=== PATIENT | male | born 1960 | race Caucasian/White ===

== ENCOUNTER 2023-08-12 18:01 | Inpatient (IN) | payer OTHER, SELFPAY ==
[2023-08-12 18:06] VITALS: BP 115/65; PULSE 68; RESP 14; TEMP 36.4; O2SAT 96; BMI 17.2
--- NOTE | 2023-08-12 18:23 | CRLHL7_ITS ---
For Patients: As a result of the Century Cures Act, medical imaging exams and procedure reports are released immediately into your electronic medical record. You may view this report before your referring provider. If you have questions, please contact your health care provider. INDICATION: Epigastric abdominal pelvic pain. History pancreatitis TECHNIQUE: CT Abdomen and pelvis with i.v. contrast. Coronal and sagittal reformats were obtained. CONTRAST: 58 mL Isovue 370 COMPARISON: 07/12/2015 FINDINGS: Lower chest: Unremarkable. Liver: There is a cyst in the left lateral segment measuring 1.3 cm and tiny punctate cysts are present in the right lobe of the liver. Spleen: Unremarkable. Pancreas: Mild intra and moderate extrahepatic biliary ductal dilatation is seen with the common bile duct measuring 12 mm. There is abrupt termination of the CBD within the pancreatic head. Pancreatic ductal dilatation is noted measuring 7 mm which may communicate with the cystic lesion in the pancreatic head measuring 12 mm. Several adjacent pancreatic calcifications are noted. Gallbladder: Unremarkable. Kidney: Scattered cortical scarring seen in the right kidney. Adrenal: Unremarkable. Bowel: Moderate diverticulosis of the sigmoid colon is present with no evidence of diverticulitis. The appendix is normal in appearance and size. Vascular: Moderate atherosclerotic calcifications of the abdominal aorta and its tributaries are present. Lymph: Unremarkable. Peritoneum: Unremarkable. No pneumoperitoneum is seen. No significant ascites is noted. Pelvis: Mild prostatic enlargement is noted. Soft tissue: Unremarkable. 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 IMPRESSION: 1. Biliary ductal dilatation and pancreatic ductal dilatation are present. Evaluation with pancreatic MRI is recommended to exclude a pancreatic mass. Dictated by Khoi Mazariegos MD @ 08/12/2023 8:12:14 PM Please note that all CT scans at this facility use dose modulation, iterative reconstruction, and/or weight-based dosing when appropriate to reduce radiation dose to as low as reasonably achievable. Dictated by: Khoi Mazariegos MD @ 08/12/2023 20:12:18 (Electronically Signed)
--- NOTE | 2023-08-12 18:41 | ED.GENADULT ---
HPI - General Adult General Date Seen: 08/12/23 Chief complaint: Abdominal Pain Stated complaint: Pancreatitis Time Seen by Provider: 08/12/23 18:07 Source: patient Mode of arrival: ambulatory Limitations: no limitations History of Present Illness HPI narrative: Patient is a 62-year-old male who states he has a history of pancreatitis, perhaps once a year. He says that it is typically caused by having too much fat in his diet. He has been told to keep his fat intake between 25-30 g a day and sometimes if he goes little over he went up with pancreatitis. He has had his typical symptoms of epigastric pain, nausea vomiting for a week. He says usually things resolve in about 3 days so this is unusual for him. It has not gotten significantly worse, he does not have chest pain, difficulty breathing, fevers, diarrhea, black or bloody stools, or other symptoms. He is status post appendectomy many many years ago, denies other abdominal surgeries. He has had pancreatic stents placed in the past. He smokes cigarettes ?a little?. Occasional THC. Denies alcohol use. Related Data Home Medications Medication Instructions Recorded Confirmed No Known Home Medications 08/12/23 08/12/23 Allergies Allergy/AdvReac Type Severity Reaction Status Date / Time No Known Drug Allergies Allergy Verified 08/12/23 19:24 Review of Systems Status of ROS: Reports: 10 or more systems reviewed and unremarkable except as noted in History and below [facility] Social History Smoking Status: Current some day smoker What tobacco products do you use: cigarettes How often do you have a drink containing alcohol: never AUDIT-C Alcohol total score: 0 Non-prescribed substance use: marijuana (any form) Non-prescribed substance use details: some days uses thc Exam Narrative: Exam Narrative: Vital signs as noted above. In general, an alert, well-appearing patient. Head: Normocephalic, atraumatic. Eyes: Pupils are equal reactive. Extraocular movements are full. Conjunctivae are normal. ENT: Mucous membranes are moist. Throat is normal. Neck: Supple without lymphadenopathy. Heart: Regular rate and rhythm. No murmur or rub. Lungs: Lungs are overall clear although breath sounds are decreased at the left base. Abdomen: Soft and nondistended. Some epigastric tenderness without rebound guarding or rigidity. Extremities: Well perfused. No edema. No calf tenderness. Pulses intact. Neurologic: Patient is alert and oriented to person and place. Speech is fluent. Face is symmetric. Moves all extremities equally. Affect: Normal. Skin: Warm and dry. Well perfused. Const: Vital Signs, click to edit/add: Vital Signs - 24 hr 08/12/23 18:06 Temperature 97.6 F Pulse Rate [Pulse Oximeter] 68 Respiratory Rate 14 Blood Pressure [Ri ght Upper Arm] 115/65 Pulse Oximetry 96 Oxygen Delivery Me thod Room Air Documenting provider has reviewed patient's vital signs: yes Course Course ED Course: Labs and CT are ordered given that if this is pancreatitis it is not following his usual course, and I think could be beneficial to rule out any evidence of pancreatic necrosis, abscess, pseudocyst etcetera. Other diagnostic considerations include gastritis, peptic ulcer disease, perforated viscus, cholecystitis, colitis or diverticulitis among others. Initially declined pain medications but ultimately decided to have some Toradol. L of saline is also ordered. Labs are notable for an elevated white blood cell count of 14.5. Hemoglobin is normal, metabolic panel shows a sodium of 133 chloride of 91 but otherwise electrolytes are normal, creatinine is 0.6. Blood sugar is 126. His CRP i elevated at 5.4 and lipase is elevated at 865. Went on to have CT scan of the abdomen read by Radiology as showing intra and extrahepatic dilation and a common bile duct of 12 mm. He notes that the common bile duct terminates abruptly within the pancreatic head. The pancreatic duct is dilated at 7 mm. There is some pancreatic calcifications. Otherwise CT is unremarkable. I did discuss this CT scan with the reading radiologist who says that pancreatitis could account for the ductal dilation but not the appearance of the common bile duct, he did recommend follow-up imaging with dedicated pancreatic MRI or alternatively ERCP. This is not something that needs to be done emergently however. For now I have recommended that we keep him in the hospital for symptomatic management, NPO, hydration, pain control etcetera. MRI could be potentially obtain tomorrow. Vital Signs Vital signs: Initial Vital Signs Temperature 97.6 F 08/12/23 18:06 Temperature Source Temporal Artery Scan 08/12/23 18:06 Pulse Rate 68 08/12/23 18:06 Pulse Rhythm Regular 08/12/23 18:06 Respiratory Rate 14 10/31/23 18:06 Blood Pressure 115/65 08/12/23 18:06 Blood Pressure Mean 81 08/12/23 18:06 Blood Pressure Position Sitting 08/12/23 18:06 Pulse Oximetry 96 08/12/23 18:06 Oxygen Delivery Method Room Air 08/12/23 18:06 Vital Signs Temperature 97.6 F 08/12/23 18:06 Pulse Rate 68 08/12/23 18:06 Respiratory Rate 14 08/12/23 18:06 Blood Pressure 115/65 08/12/23 18:06 Pulse Oximetry 96 08/12/23 18:06 Oxygen Delivery Method Room Air 08/12/23 18:06 Temperature 97.6 F 08/12/23 18:06 Pulse Rate 68 08/12/23 18:06 Respiratory Rate 14 08/12/23 18:06 Blood Pressure 115/65 08/12/23 18:06 Pulse Oximetry 96 08/12/23 18:06 Oxygen Delivery Method Room Air 08/12/23 18:06 Medical Decision Making Lab Data Labs: Lab Results 08/12/23 Range/Units 18:35 WBC 14.46 H (4.50-11.00) K/uL RBC 4.84 (4.30-5.90) m/uL Hgb 15.3 (13.5-17.5) gm/dL Hct 45.7 (37.0-53.0) % MCV 94 (80-100) fL MCH 32 (26-34) pg MCHC 34 (32-36) gm/dL RDW Coeff of Amadeo 12.1 (11.5-15.5) % Plt Count 296 (140-440) K/uL Neut % (Auto) 78.7 H (42.0-72.0) % Lymph % (Auto) 10.8 L (20-44) % Andrews % (Auto) 9.3 (0.0-11.0) % Eos % (Auto) 1.0 (0.0-7.0) % Baso % (Auto) 0.1 (0.0-3.0) % Neut # (Auto) 11.40 H (1.7-7.0) K/uL Lymph # (Auto) 1.60 (0.90-2.90) K/uL Andrews # (Auto) 1.30 H (0.00-0.90) K/UL Eos # (Auto) 0.10 (0.00-0.50) K/uL Baso # (Auto) 0.00 (0.00-0.30) K/uL Abs Immat Gran (auto) 0.00 (0.00-0.30) K/uL Imm/Tot Granulo (auto) 0.1 % Sodium 133 L (135-149) mmol/L Potassium 4.2 (3.6-5.1) mmol/L Chloride 91 L (96-114) mmol/L Carbon Dioxide 27 (20-32) mmol/L Anion Gap 15 (7-15) mEq/L BUN 25 (7-30) mg/dL Creatinine 0.6 (0.5-1.5) mg/dL Estimated Creat Clear 57.45 Estimated GFR 108 ml/min Glucose 126 H (60-115) mg/dL Lactate 1.1 (0.5-1.9) mmol/L Calcium 9.6 (8.4-10.6) mg/dL Total Bilirubin 1.0 (0.1-1.5) mg/dL Direct Bilirubin 0.0 (0.0-0.5) mg/dL AST 29 (12-35) U/L ALT 15 (4-50) U/L Alkaline Phosphatase 82 (40-150) U/L C-Reactive Protein 5.4 H (0.5-1.0) mg/dL Total Protein 7.8 (6.0-8.3) g/dL Albumin 4.3 (3.3-5.0) g/dL Lipase 865 H (23-300) U/L Discharge Plan Discharge Clinical Impression: Pancreatitis Patient Disposition: Admitted As Observation Condition: Stable
[2023-08-12 18:44] LABS: Lactate* 1.1 mmol/L (0.5-1.9)
[2023-08-12 18:45] LABS: Basophils Percent Auto 0.1 % (0.0-3.0); Hematocrit 45.7 % (37.0-53.0); Hemoglobin* 15.3 gm/dL (13.5-17.5); Immature Granulocytes Pct Auto 0.1 %; Lymphocytes Percent Auto 10.8 % (20-44); Mean Corpuscular HGB Conc 34 gm/dL (32-36); Mean Corpuscular Hemoglobin 32 pg (26-34); Mean Corpuscular Volume 94 fL (80-100); Monocytes Percent Auto 9.3 % (0.0-11.0); Neutrophils Percent Auto 78.7 % (42.0-72.0); Platelet Count* 296 K/uL (140-440); RDW Coefficient of Variation % 12.1 % (11.5-15.5); Red Blood Count 4.84 m/uL (4.30-5.90); White Blood Count* 14.46 K/uL (4.50-11.00)
[2023-08-12 18:46] LABS: Slide Review Reflex No
[2023-08-12] MEDS: 0.9 % SODIUM CHLORIDE 1000 ml 1,000 ML IV ×2 (18:46→20:02)
[2023-08-12] MEDS: KETOROLAC 15 MG/ML inj IVP (18:46)
[2023-08-12 19:01] LABS: Albumin* 4.3 g/dL (3.3-5.0); Chloride* 91 mmol/L (96-114)
[2023-08-12 19:02] LABS: Potassium* 4.2 mmol/L (3.6-5.1); Sodium* 133 mmol/L (135-149)
[2023-08-12 19:04] LABS: Alkaline Phosphatase* 82 U/L (40-150); Anion Gap 15 mEq/L (7-15); Aspartate Amino Transferase* 29 U/L (12-35); Blood Urea Nitrogen* 25 mg/dL (7-30); Carbon Dioxide* 27 mmol/L (20-32); Creatinine* 0.6 mg/dL (0.5-1.5); Est. Creatinine Clearance* 57.45; Estimated Glomerular Filt Rate 108 ml/min; Total Protein* 7.8 g/dL (6.0-8.3)
[2023-08-12 19:05] LABS: Alanine Aminotransferase* 15 U/L (4-50); Calcium* 9.6 mg/dL (8.4-10.6); Glucose* 126 mg/dL (60-115); Lipase* 865 U/L (23-300)
[2023-08-12 19:07] LABS: C Reactive Protein* 5.4 mg/dL (0.5-1.0)
[2023-08-12] MEDS: MORPHINE 4 MG/ML INJ IVP (20:36)
[2023-08-12 22:07] VITALS: BP 193/91; PULSE 51; RESP 18; TEMP 36.8; O2SAT 95; O2SAT 98; BMI 18.5
--- NOTE | 2023-08-12 22:22 | P.IMHP_ITS ---
Hospitalist- H&P: HPI History of Present Illness Date Seen: 08/12/23 Chief complaint: Pancreatitis Narrative: Jonathan Fernandez is a 62 year old male with history of recurrent acute on chronic pancreatitis, previously diagnosed pancreatic duct strictures with recurrent episodes of stenting and remote history of alcohol abuse presents with another typical episode of abdominal pain caused by pancreatitis. Patient reports that 6 days ago he had onset of epigastric pain typical of his episodes of pancreatitis. He gets these episodes occasionally perhaps is often as once a year but usually waits them out and after a couple days he is better. In this case he was not getting any better so he came to our emergency room. He tries to avoid high fat diet. In the past week he has eaten very little food. He has been drinking some water. He has had an occasional episode of emesis, nonbloody. He has not had a fever. He has not had a bowel movement for a few days. He reports being quite dehydrated. He has had multiple interventions by Laurie Cheng MD, psychiatric mental health nurse at [facility] who was performed multiple procedures to stent and removed stents in his pancreatic duct. It appears that this was last done in about 2014. It appears he has not had a hospitalization since that time. His chronic pancreatitis was thought secondary to alcohol abuse. He has maintained sobriety from alcohol for since 2011. He has not had a cholecystectomy. He does smoke about half pack of cigarettes a day. Previously had a portal vein thrombosis many years ago treated with a course of warfarin therapy. Review of Systems Narrative: Patient reports generally doing well except as noted above. No other recent illness. [facility] Medical History (Updated 08/12/23 @ 22:35 by Corbin Lara MD) History of biliary stent insertion ?Z98.890 - Other specified postprocedural states (ICD-10) Alcohol abuse ?F10.10 - Alcohol abuse, uncomplicated (ICD-10) Smoking 1/2 pack a day or less ?F17.210 - Nicotine dependence, cigarettes, uncomplicated (ICD-10) Pancreatic duct stricture ?K86.89 - Other specified diseases of pancreas (ICD-10) Chronic alcoholic pancreatitis ?K86.0 - Alcohol-induced chronic pancreatitis (ICD-10) Surgical History (Updated 08/12/23 @ 22:29 by Corbin Lara MD) Hx of appendectomy ?Z90.49 - Acquired absence of other specified parts of digestive tract (ICD- 10) Social History (Updated 08/12/23 @ 22:32 by Corbin Lara MD) Narrative: He lives in [place]. Closest contact is his sister. He works in the [employer]. Former history of alcohol abuse until 2011. Smokes about a half pack of cigarettes a day. He has been cautious about eating fatty foods. What is your current living situation?: I presently have a place to live Problems where you live: no known problems Problems where you live details: n/a In the past 12 months, utilities in danger of being shut off: no In past 12 months, lack of transportation kept you from medical appts, meetings, work, or getting things needed for daily living: no In the past 12 mos, have been you worried that your food would run out before you had money to buy more?: never true In the past 12 mos, the food you bought just didn't last and you didn't have money to buy more?: never true Highest level of school completed/degree received: Associate degree: occupational, technical, vocational program Smoking Status: Current some day smoker What tobacco products do you use: cigarettes Smoking packs per day: 0.4 Smoking cigarettes per day: 8.0 Years smoked: 50 Smoking pack-years: 20.00 Do you use any of these nicotine containing products: None How often do you have a drink containing alcohol: never AUDIT-C Alcohol total score: 0 Non-prescribed substance use: marijuana (any form) Non-prescribed substance use details: some days uses thc Caffeine: No How often does anyone, including family, friends and others, physically hurt you : never How often does anyone, including family, friends and others, insult or talk down to you: never How often does anyone, including family, friends and others, threaten you with harm: never How often does anyone, including family, friends and others, scream or curse at you: never service: No Meds Home Medications and Allergies Home Medications Medication Instructions Recorded Confirmed Type No Known Home Medications 08/12/23 08/12/23 History Allergies Allergy/AdvReac Type Severity Reaction Status Date / Time No Known Drug Allergies Allergy Verified 08/12/23 19:24 Exam Narrative: Exam Narrative: He is alert and appears in no distress. He gives his own history. Eyes are normal. Sclerae nonicteric. Oropharynx with dry mucous membranes. Neck is supple without mass or adenopathy. Respirations are clear to auscultation. Cardiovascular: S1, S2, regular rate and rhythm. No murmur gallop or rub. Abdomen: Bowel sounds active. Abdomen is soft he has mild to moderate epigastric tenderness and some voluntary guarding. There is no mass. External genitalia normal. Extremities without edema. He has intact pulses and good perfusion he moves all 4 extremities well Const: Vital Signs, click to edit/add: Vital Signs - 24 hr 08/12/23 18:06 Temperature 97.6 F Pulse Rate [Pulse Oximeter] 68 Respiratory Rate 14 Blood Pressure [Ri ght Upper Arm] 115/65 Pulse Oximetry 96 Oxygen Delivery Me thod Room Air Documenting provider has reviewed patient's vital signs: yes Hospitalist - H&P: Result Labs Labs: Short CBC 08/12/23 Range/Units 18:35 WBC 14.46 H (4.50-11.00) K/uL Hgb 15.3 (13.5-17.5) gm/dL Hct 45.7 (37.0-53.0) % Plt Count 296 (140-440) K/uL BMP 08/12/23 18:35 Sodium 133 L Potassium 4.2 Chloride 91 L Carbon Dioxide 27 BUN 25 Creatinine 0.6 Glucose 126 H Calcium 9.6 Liver Function 08/12/23 Range/Units 18:35 Total Bilirubin 1.0 (0.1-1.5) mg/dL Direct Bilirubin 0.0 (0.0-0.5) mg/dL AST 29 (12-35) U/L ALT 15 (4-50) U/L Alkaline Phosphatase 82 (40-150) U/L Albumin 4.3 (3.3-5.0) g/dL Imaging CT scan - abdomen: Radiologist's impression: INDICATION: Epigastric abdominal pelvic pain. History pancreatitis TECHNIQUE: CT Abdomen and pelvis with i.v. contrast. Coronal and sagittal reformats were obtained. CONTRAST: 58 mL Isovue 370 COMPARISON: 07/12/2015 FINDINGS: Lower chest: Unremarkable. Liver: There is a cyst in the left lateral segment measuring 1.3 cm and tiny punctate cysts are present in the right lobe of the liver. Spleen: Unremarkable. Pancreas: Mild intra and moderate extrahepatic biliary ductal dilatation is seen with the common bile duct measuring 12 mm. There is abrupt termination of the CBD within the pancreatic head. Pancreatic ductal dilatation is noted measuring 7 mm which may communicate with the cystic lesion in the pancreatic head measuring 12 mm. Several adjacent pancreatic calcifications are noted. Gallbladder: Unremarkable. Kidney: Scattered cortical scarring seen in the right kidney. Adrenal: Unremarkable. Bowel: Moderate diverticulosis of the sigmoid colon is present with no evidence of diverticulitis. The appendix is normal in appearance and size. Vascular: Moderate atherosclerotic calcifications of the abdominal aorta and its tributaries are present. Lymph: Unremarkable. Peritoneum: Unremarkable. No pneumoperitoneum is seen. No significant ascites is noted. Pelvis: Mild prostatic enlargement is noted. Soft tissue: Unremarkable. 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 IMPRESSION: 1. Biliary ductal dilatation and pancreatic ductal dilatation are present. Evaluation with pancreatic MRI is recommended to exclude a pancreatic mass. Assessment and Plan Assessment and plan (1) Acute pancreatitis: Problem comment: IV fluids and pain medications. Diet as tolerated. Status: Acute (2) Pancreatic duct stricture: Problem comment: Will obtain MRCP to further evaluate. Consider consultation with Dr. Cheng. Status: Acute Plan Patient is admitted to the hospital for evaluation and management of acute on chronic pancreatitis. IV fluids, IV pain medications, MRCP and possible consultation with Gastroenterology on how to proceed. Plan of care discussed with the patient he is in agreement with this. Total time spent today is 60 minutes, 40 minutes that time in coordination of care and discussing with patient, family and other providers ongoing evaluation management of his pancreatitis
[2023-08-12 23:00] VITALS: BP 187/89; PULSE 51; RESP 18; TEMP 36.8; O2SAT 98
--- NOTE | 2023-08-13 | CRLHL7_ITS ---
For Patients: As a result of the Century Cures Act, medical imaging exams and procedure reports are released immediately into your electronic medical record. You may view this report before your referring provider. If you have questions, please contact your health care provider. INDICATION: Abdominal pain. Recurrent pancreatitis. COMPARISON: CT scan of the abdomen and pelvis dated [address] scan of the abdomen and pelvis dated 12 July 2015. TECHNIQUE: MRCP with heavily T2 weighted 2D and 3D MRCP images. Axial T1 in- and out of phase and T2 weighted images also performed. No gadolinium administered. FINDINGS: No fatty infiltration of the liver. 1.3 cm cyst in segment 2 of the liver. A few other tiny cysts in the liver. No focal abnormalities identified in the visualized portions of the spleen, adrenal glands, and left kidney. A few cysts in the right kidney. The kidneys are otherwise unremarkable. No hydronephrosis. 1.3 cm cyst in the head of the pancreas is in direct continuity with the main pancreatic duct. A few other small cysts in the pancreas. Dilation of the main pancreatic duct measuring up to 7 mm. A few dystrophic calcifications in the pancreas better seen on the previous CT scan. 2.0 cm fluid collection adjacent to the head of the pancreas. Mild dilation of the common bile duct measuring 1.0 cm with no intrahepatic bile duct dilation. No filling defects in the biliary system. Impression : 1. 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 The dilation of the main pancreatic duct may indicate main duct extension. Recommend gastroenterology consultation. 2. 2.0 cm probable pancreatic pseudocyst adjacent to the head of the pancreas could be due to recent pancreatitis. 3. Mild dilation of the common bile duct. No choledocholithiasis. Dictated by Main Erickson MD @ 08/13/2023 1:14:49 PM (Electronically Signed)
[2023-08-13] MEDS: LACTATED RINGERS 1000 ML 1,000 ML 125 ML IV ×3 (00:19→17:04)
[2023-08-13 03:00] VITALS: BP 156/89; PULSE 65; RESP 20; TEMP 36.8; O2SAT 95
[2023-08-13 05:27] LABS: Appearance Urine Slightly Cloudy (Clear); Bilirubin Urine Negative (Negative); Blood Urine 1+ (Negative); Color Urine Yellow (Yellow); Glucose Urine Negative (Negative); Ketones Urine Negative (Negative); Leukocyte Esterase Urine Trace (Negative); Nitrite Urine Negative (Negative); Protein Urine Trace (Negative); Specific Gravity Urine 1.025 (1.000-1.030)
[2023-08-13 05:34] LABS: Bacteria Urine Few; RBC Urine 0-2 (0-2); Squamous Epithelial Cell Urine Few (None-Few)
[2023-08-13 06:56] LABS: Basophils Percent Auto 0.3 % (0.0-3.0); Eosinophils Percent Auto 1.6 % (0.0-7.0); Hematocrit 40.4 % (37.0-53.0); Hemoglobin* 13.5 gm/dL (13.5-17.5); Immature Granulocytes Pct Auto 0.1 %; Lymphocytes Percent Auto 10.5 % (20-44); Mean Corpuscular HGB Conc 33 gm/dL (32-36); Mean Corpuscular Hemoglobin 32 pg (26-34); Mean Corpuscular Volume 95 fL (80-100); Neutrophils Percent Auto 78.5 % (42.0-72.0); Platelet Count* 251 K/uL (140-440); RDW Coefficient of Variation % 12.2 % (11.5-15.5); Red Blood Count 4.25 m/uL (4.30-5.90); White Blood Count* 12.37 K/uL (4.50-11.00)
[2023-08-13 07:00] VITALS: BP 143/78; PULSE 67; RESP 18; TEMP 36.8; O2SAT 94
[2023-08-13 07:05] LABS: Slide Review Reflex No
[2023-08-13 07:16] LABS: Chloride* 97 mmol/L (96-114); Sodium* 132 mmol/L (135-149)
[2023-08-13 07:19] LABS: Anion Gap 11 mEq/L (7-15); Blood Urea Nitrogen* 18 mg/dL (7-30); Carbon Dioxide* 24 mmol/L (20-32); Creatinine* 0.5 mg/dL (0.5-1.5); Est. Creatinine Clearance* 60.12; Estimated Glomerular Filt Rate 114 ml/min; Lipase* 559 U/L (23-300)
[2023-08-13 07:20] LABS: Calcium* 8.4 mg/dL (8.4-10.6); Glucose* 97 mg/dL (60-115)
--- NOTE | 2023-08-13 08:19 | PC.NURSE ---
Patient pleasant, alert and oriented. Arrived to med/Surg from ER reporting pain in his mid upper abdomen rated 6/10. He declined any pain medications at that time. Later reported discomfort in his abdomen but did not rate, reporting that it was a dull ache. Pain medication options again discussed however he declined. Ambulated in room independently. Tolerated clear liquid diet.
[2023-08-13 11:00] VITALS: BP 130/77; PULSE 56; RESP 18; TEMP 36.7; O2SAT 95
--- NOTE | 2023-08-13 14:29 | PM.IMPN1 ---
Progress Note: A&P Assessment and plan (1) Acute pancreatitis: Problem details: IV fluids and pain medications. Diet as tolerated. Status: Acute (2) Pancreatic duct stricture: Problem details: MRCP shows a 1.3 cm cyst in the head of the pancreas which may be IPMN. Pancreatic duct is dilated. 2 cm pancreatic pseudocyst adjacent to the head of the pancreas as well. Status: Acute Plan I spoke with Dr. Cheng's partner at [facility].. He thinks the patient needs an endoscopic ultrasound. They currently have no beds available in the system. Clinically the patient is not critically ill in need of emergent intervention. Plan will be to place him on a wait list at [facility] or other [facility] for endoscopic ultrasound and to manage conservatively here. If he clinically improves and is able to manage p.o. food and fluid possibly this can be arranged as an outpatient. If he does not improve will then continue to work on transfer for endoscopic ultrasound. Time Spent With Patient Total time spent: Total time spent today is 55 minutes, 45 minutes in coordination of care discussing with patient and other providers ongoing evaluation management pancreatitis, endoscopic ultrasound and disposition. Subjective Date Seen: 08/13/23 Interval history: 62-year-old male with longstanding history of chronic pancreatitis and recurrent episodes of acute pancreatitis thought secondary to pancreatic duct stricture presents with another typical episode of pancreatitis. Symptoms started 7 days ago. He continues to have a continuous epigastric pain. At home he is unable to maintain nutrition and hydration and came to the emergency room. He has been reluctant to use opioid medicines at home as well as in the hospital. Today he has been able to drink some clear liquids. Today underwent MRCP for further evaluation. See results below for details. Exam Narrative: Exam Narrative: He is alert and appears in no distress. Breathing is unlabored. Lungs are clear to auscultation. Cardiovascular: S1, S2, regular rate and rhythm. No murmur gallop or rub. Abdomen: Bowel sounds are present. Abdomen is soft. He has mild to moderate epigastric tenderness and some guarding. No mass. No peritonitis. Extremities without edema. Const: Vital Signs, click to edit/add: Vital Signs - 24 hr 08/12/23 18:06 08/12/23 22:07 08/12/23 22:07 Temperature 97.6 F 98.2 F Pulse Rate [Pulse Oximeter] 68 51 L Respiratory Rate 14 18 18 Blood Pressure [Ri ght Arm] 193/91 H Blood Pressure [Ri ght Upper Arm] 115/65 Pulse Oximetry 96 98 95 Oxygen Delivery Me thod Room Air Room Air Room Air 08/12/23 23:00 08/13/23 03:00 08/13/23 07:00 Temperature 98.2 F 98.2 F 98.2 F Pulse Rate [Pulse Oximeter] 51 L 65 67 Respiratory Rate 18 20 18 Blood Pressure [Ri ght Arm] 187/89 H 156/89 H 143/78 H Blood Pressure [Ri ght Upper Arm] Pulse Oximetry 98 95 94 Oxygen Delivery Me thod Room Air Room Air Room Air 08/13/23 11:00 Temperature 98.0 F Pulse Rate [Pulse Oximeter] 56 L Respiratory Rate 18 Blood Pressure [Ri ght Arm] 130/77 Blood Pressure [Ri ght Upper Arm] Pulse Oximetry 95 Oxygen Delivery Me thod Room Air Documenting provider has reviewed patient's vital signs: yes Labs Labs: Laboratory Results - last 24 hr 08/12/23 08/13/23 08/13/23 18:35 05:10 06:36 WBC 14.46 H 12.37 H RBC 4.84 4.25 L Hgb 15.3 13.5 Hct 45.7 40.4 MCV 94 95 MCH 32 32 MCHC 34 33 RDW Coeff of Amadeo 12.1 12.2 Plt Count 296 251 Neut % (Auto) 78.7 H 78.5 H Lymph % (Auto) 10.8 L 10.5 L [place] % (Auto) 9.3 9.0 Eos % (Auto) 1.0 1.6 Baso % (Auto) 0.1 0.3 Neut # (Auto) 11.40 H 9.70 H Lymph # (Auto) 1.60 1.30 [place] # (Auto) 1.30 H 1.10 H Eos # (Auto) 0.10 0.20 Baso # (Auto) 0.00 0.00 Abs Immat Gran (auto) 0.00 0.00 Imm/Tot Granulo (auto) 0.1 0.1 Sodium 133 L 132 L Potassium 4.2 4.0 Chloride 91 L 97 Carbon Dioxide 27 24 Anion Gap 15 11 BUN 25 18 Creatinine 0.6 0.5 Estimated Creat Clear 57.45 60.12 Estimated GFR 108 114 Glucose 126 H 97 Lactate 1.1 Calcium 9.6 8.4 Total Bilirubin 1.0 Direct Bilirubin 0.0 AST 29 ALT 15 Alkaline Phosphatase 82 C-Reactive Protein 5.4 H Total Protein 7.8 Albumin 4.3 Lipase 865 H 559 H Urine Color Yellow Urine Appearance Slightly Cloudy A Urine pH 6.0 Ur Specific [place] 1.025 Urine Protein Trace A Urine Glucose (UA) Negative Urine Ketones Negative Urine Blood 1+ A Urine Nitrite Negative Urine Bilirubin Negative Urine Urobilinogen 1.0 Ur Leukocyte Esterase Trace A Urine RBC 0-2 Urine WBC 5-10 A Ur Squamous Epith Cells Few Urine Bacteria Few A Imaging MRI - abdomen: Radiologist's impression: INDICATION: Abdominal pain. Recurrent pancreatitis. COMPARISON: CT scan of the abdomen and pelvis dated [address] scan of the abdomen and pelvis dated 12 July 2015. TECHNIQUE: MRCP with heavily T2 weighted 2D and 3D MRCP images. Axial T1 in- and out of phase and T2 weighted images also performed. No gadolinium administered. FINDINGS: No fatty infiltration of the liver. 1.3 cm cyst in segment 2 of the liver. A few other tiny cysts in the liver. No focal abnormalities identified in the visualized portions of the spleen, adrenal glands, and left kidney. A few cysts in the right kidney. The kidneys are otherwise unremarkable. No hydronephrosis. 1.3 cm cyst in the head of the pancreas is in direct continuity with the main pancreatic duct. A few other small cysts in the pancreas. Dilation of the main pancreatic duct measuring up to 7 mm. A few dystrophic calcifications in the pancreas better seen on the previous CT scan. 2.0 cm fluid collection adjacent to the head of the pancreas. Mild dilation of the common bile duct measuring 1.0 cm with no intrahepatic bile duct dilation. No filling defects in the biliary system. Impression : 1. 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 The dilation of the main pancreatic duct may indicate main duct extension. Recommend gastroenterology consultation. 2. 2.0 cm probable pancreatic pseudocyst adjacent to the head of the pancreas could be due to recent pancreatitis. 3. Mild dilation of the common bile duct. No choledocholithiasis.
[2023-08-13 15:00] VITALS: BP 145/92; PULSE 56; RESP 18; TEMP 36.5; O2SAT 96
[2023-08-13] MEDS: SODIUM CHLORIDE 0.9 % (FLUSH) 10 ML SYRINGE 5 ML IVF (17:05)
[2023-08-13 19:00] VITALS: BP 143/79; PULSE 50; RESP 18; TEMP 36.8; O2SAT 95
--- NOTE | 2023-08-13 19:39 | PC.NURSE ---
Patient alert and oriented. Tolerating a reg diet and denies any pain after eating. LR running at 125. IV patent. Patient ambulating independently to BR. Patient verbalized that he needed further explanation and clarity on MRI results.
[2023-08-13] MEDS: ENOXAPARIN 40 MG/0.4 ML INJ SUBCUT (21:47)
[2023-08-13 23:55] VITALS: BP 130/72; PULSE 62; RESP 20; TEMP 36.9; O2SAT 94
[2023-08-14] MEDS: LACTATED RINGERS 1000 ML 1,000 ML 125 ML IV ×2 (01:07→08:52)
[2023-08-14 03:00] VITALS: BP 141/74; PULSE 63; RESP 18; TEMP 36.7; O2SAT 95
--- NOTE | 2023-08-14 04:47 | PC.NURSE ---
Patient pleasant, alert and oriented. Ate turkey, mashed potatoes and carrots at supper. Tolerated regular diet well, denying any abdominal discomfort, nausea or vomiting with meal. Patient did report that he had some abdominal discomfort for a few minutes after eating sorbet this shift.?Ambulates independently in room. Reported pain in mid upper abdomen through the night rated 1-2/10. Reports tolerating pain.?
[2023-08-14 07:40] VITALS: BP 131/79; PULSE 56; RESP 20; TEMP 36.4; O2SAT 94
[2023-08-14 11:26] VITALS: BP 134/74; PULSE 54; RESP 20; TEMP 36.6; O2SAT 95
--- NOTE | 2023-08-14 13:10 | PM.DS1 ---
DS: Providers Provider Date Seen: 08/14/23 Date of admission: 08/12/23 21:52 Primary care physician: Harshil Koo MD Admitting Clinician: Corbin Lara MD Attending Physician on discharge: Corbin Lara MD Date of Discharge: 08/14/23 DS: Diagnosis Discharge Diagnosis (1) Acute pancreatitis: Status: Acute Problem details: IV fluids and pain medications. Diet as tolerated. (2) Pancreatic duct stricture: Status: Acute Problem details: MRCP shows a 1.3 cm cyst in the head of the pancreas which may be IPMN. Pancreatic duct is dilated. 2 cm pancreatic pseudocyst adjacent to the head of the pancreas as well. (3) Pancreatic cyst: Status: Acute Problem details: Recommend endoscopic ultrasound to evaluate. Dr. Cheng will follow-up with patient DS: Summary Hospital Course Hospital Course: 62-year-old male with history of chronic pancreatitis and history of pancreatic duct stricture with recurrent stenting present the hospital with recurrent abdominal pain typical of previous episodes of pancreatitis. He had had multiple problems with this up until 2014 with recurrent stenting by Dr. Cheng. Since then he has been doing well with occasional episodes at home where he would have pain and just not eat for a day and he would get better. For 5 days prior to this admission he had been having pain that he could not get better. He had not been eating or drinking much. On admission he was found to have an elevated lipase, almost 3 times normal, elevated white count of 14.5. CT showed pancreatitis as well as changes around the pancreatic duct. MRCP was obtained and showed couple cysts at the head of the pancreas and adjacent to the pancreatic duct. I spoke with [facility] and they recommended endoscopic ultrasound. We were unable to transfer to have this done due to no beds available. Fortunately patient improved to the point where he could eat and drink some today. He is interested in going home and arrangements have been made for him to see Dr. Cheng next week. Status at Discharge Functional status at discharge: independent ambulation Overall status at discharge: patient is progressing back to baseline Time Spent with Patient Time attestation: Total time spent providing and/or coordinating discharge services: 50 minutes in coordination of care on the day of discharge Time spent: Greater than 30 minutes Exam Narrative: Exam Narrative: He is alert and appears in no distress. Abdomen has still mild epigastric tenderness with some voluntary guarding. No mass or peritonitis. Const: Vital Signs, click to edit/add: Vital Signs - 24 hr 08/13/23 15:00 08/13/23 15:00 08/13/23 19:00 Temperature 97.7 F 98.2 F Pulse Rate [Pulse Oximeter] 56 L 56 L 50 L Respiratory Rate 18 18 18 Blood Pressure [Ri ght Arm] 145/92 H 143/79 H Pulse Oximetry 96 95 Oxygen Delivery Me thod Room Air Room Air 08/13/23 23:55 08/14/23 03:00 08/14/23 07:40 Temperature 98.4 F 98.0 F 97.6 F Pulse Rate [Pulse Oximeter] 62 63 56 L Respiratory Rate 20 18 20 Blood Pressure [Ri ght Arm] 130/72 141/74 H 131/79 Pulse Oximetry 94 95 94 Oxygen Delivery Me thod Room Air Room Air Room Air 08/14/23 11:26 Temperature 97.8 F Pulse Rate [Pulse Oximeter] 54 L Respiratory Rate 20 Blood Pressure [Ri ght Arm] 134/74 Pulse Oximetry 95 Oxygen Delivery Me thod Room Air Documenting provider has reviewed patient's vital signs: yes DS: Data Data Completed and Pending Labs on day of discharge: Preliminary micro results at discharge 08/13/23 Unknown Urine Culture - Preliminary Urine,Clean Catch < 10,000 COL/ML MIXED GRAM POSITIVE RENEE ISOLATED NO FURTHER WORKUP Imaging MRI - abdomen: Radiologist's impression: INDICATION: Abdominal pain. Recurrent pancreatitis. COMPARISON: CT scan of the abdomen and pelvis dated [address] scan of the abdomen and pelvis dated 12 July 2015. TECHNIQUE: MRCP with heavily T2 weighted 2D and 3D MRCP images. Axial T1 in- and out of phase and T2 weighted images also performed. No gadolinium administered. FINDINGS: No fatty infiltration of the liver. 1.3 cm cyst in segment 2 of the liver. A few other tiny cysts in the liver. No focal abnormalities identified in the visualized portions of the spleen, adrenal glands, and left kidney. A few cysts in the right kidney. The kidneys are otherwise unremarkable. No hydronephrosis. 1.3 cm cyst in the head of the pancreas is in direct continuity with the main pancreatic duct. A few other small cysts in the pancreas. Dilation of the main pancreatic duct measuring up to 7 mm. A few dystrophic calcifications in the pancreas better seen on the previous CT scan. 2.0 cm fluid collection adjacent to the head of the pancreas. Mild dilation of the common bile duct measuring 1.0 cm with no intrahepatic bile duct dilation. No filling defects in the biliary system. Impression : 1. 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 The dilation of the main pancreatic duct may indicate main duct extension. Recommend gastroenterology consultation. 2. 2.0 cm probable pancreatic pseudocyst adjacent to the head of the pancreas could be due to recent pancreatitis. 3. Mild dilation of the common bile duct. No choledocholithiasis. Discharge Plan Discharge Disposition: Home, Self-Care Date of Admission: 08/12/23 21:52 Attending Provider on Discharge: Corbin Lara Primary Care Provider: Harshil Koo Condition: Stable Anticipated Discharge Date/Time: 08/14/23 11:39 Discharge Medications: No Action No Known Home Medications Discharge Orders: Discharge Order (Routine); Ordered 08/14/23 Ordered By: Corbin Lara Patient Education: Pancreatitis (DC) Additional Instructions: Dr. Cheng's office will contact to to arrange an appointment next . Activity Level: No Restrictions Diet Detail: Low-fat diet Follow Up Appointments: Harshil Koo MD [Primary Care Provider] - Forms: [place] Free Classifieds Info Instructions
== END 2023-08-14 13:35 | disposition home or self-care (01) | DRG 439 ==
LOC: ED 20:25 → MEDSURG 21:39
PROVIDERS: Admitting Provider Family Medicine; Emergency Provider Emergency Medicine; PCP Family Medicine; Visit Provider Family Medicine
DX: K85.90 Acute pancreatitis without necrosis or infection, unspecified (principal); K86.2 Cyst of pancreas; K86.89 Other specified diseases of pancreas; K76.89 Other specified diseases of liver; K86.0 Alcohol-induced chronic pancreatitis; F10.21 Alcohol dependence, in remission; Z86.718 Personal history of other venous thrombosis and embolism; F17.210 Nicotine dependence, cigarettes, uncomplicated
CPT/HCPCS: 36415; 74177; 74181; 80048; 80076; 81001; 83605; 83690; 85025; 86140; 87086; 93005; 99284; 99285; J1650; J1885; J2270; J7030; J7120; Q9967

== ENCOUNTER 2024-06-11 12:23 | Emergency (ER) | payer OTHER, SELFPAY ==
[2024-06-11 12:26] VITALS: BP 157/76; PULSE 78; RESP 18; TEMP 36.9; O2SAT 97; BMI 17.4
--- NOTE | 2024-06-11 12:31 | ED.GENADULT ---
HPI - General Adult General Chief complaint: Unspecified Complaint, Adult Stated complaint: High WBC, sent from urgent care Time Seen by Provider: 06/11/24 12:30 History of Present Illness HPI narrative: 63-year-old male with a history of pancreatitis (apparently initially triggered by alcohol use, but now sober for several years. He still typically will experience episodes of pancreatitis about once per year triggered by fatty foods. He was in the ER July 2023 and according to notes gets it approximately once per year). History of splenectomy and appendectomy as well. He is referred from urgent care to ER today. Labs show WBC of 23, hemoglobin 15, platelets 309. Sodium 135, potassium 4.3, chloride 97, bicarb 27, creatinine 1.0, BUN 25. He had abdominal x-ray that showed a nonobstructed bowel gas pattern. According to notes from Urgent Care he presented with epigastric pain beginning 2 days ago on Friday which radiates to his chest. Normal bowel movements. No black stools. Patient reports that his upper abdomen and lower 2/3 of his chest began to hurt about 2 days ago on Friday after he ate a skin less piece of chicken sandwich for lunch. He knows that he needs to avoid fatty foods so when he eats chicken heated without any scan. He has been having discomfort and pain ever since. He does know he has a history of pancreatitis but says it is pancreas is never hurt up into his chest as it is today. He is not having any trouble breathing. No fever. Mild nausea but no vomiting. No diarrhea. No black or bloody stools. Related Data Home Medications ?Medication ?Instructions ?Recorded ?Confirmed albuterol sulfate 90 mcg/actuation 1 - 2 puff inhalation Q6H PRN 06/11/24 06/11/24 aerosol inhaler dyspnea Allergies Allergy/AdvReac Type Severity Reaction Status Date / Time No Known Drug Allergies Allergy Verified 06/11/24 14:16 [facility] Medical History Pancreatic cyst ?K86.2 - Cyst of pancreas (ICD-10) Pancreatitis ?K85.90 - Acute pancreatitis without necrosis or infection, unspecified (ICD-10) History of biliary stent insertion ?Z98.890 - Other specified postprocedural states (ICD-10) Alcohol abuse ?F10.10 - Alcohol abuse, uncomplicated (ICD-10) Smoking 1/2 pack a day or less ?F17.210 - Nicotine dependence, cigarettes, uncomplicated (ICD-10) Pancreatic duct stricture ?K86.89 - Other specified diseases of pancreas (ICD-10) Chronic alcoholic pancreatitis ?K86.0 - Alcohol-induced chronic pancreatitis (ICD-10) Surgical History Hx of appendectomy ?Z90.49 - Acquired absence of other specified parts of digestive tract (ICD-10) Social History Narrative: He lives in [place]. Closest contact is his sister. He works in the [employer]. Former history of alcohol abuse until 2011. Smokes about a half pack of cigarettes a day. He has been cautious about eating fatty foods. What is your current living situation?: I presently have a place to live Problems where you live: no known problems Problems where you live details: n/a In the past 12 months, utilities in danger of being shut off: no In past 12 months, lack of transportation kept you from medical appts, meetings, work, or getting things needed for daily living: no In the past 12 mos, have been you worried that your food would run out before you had money to buy more?: never true In the past 12 mos, the food you bought just didn't last and you didn't have money to buy more?: never true Highest level of school completed/degree received: Associate degree: occupational, technical, vocational program Smoking Status: Current some day smoker What tobacco products do you use: cigarettes Smoking packs per day: 0.4 Smoking cigarettes per day: 8.0 Years smoked: 50 Smoking pack-years: 20.00 Do you use any of these nicotine containing products: None How often do you have a drink containing alcohol: never AUDIT-C Alcohol total score: 0 Non-prescribed substance use: marijuana (any form) Non-prescribed substance use details: some days uses thc Caffeine: No How often does anyone, including family, friends and others, physically hurt you: never How often does anyone, including family, friends and others, insult or talk down to you: never How often does anyone, including family, friends and others, threaten you with harm: never How often does anyone, including family, friends and others, scream or curse at you: never service: No Exam Narrative: Exam Narrative: Constitutional: Appears well-developed and well-nourished. Alert. Conversant. Non toxic. HENT: Head: Atraumatic. Nose: Nose normal. Mouth/Throat: Oral mucosa is clear and moist. no trismus. Pharynx normal. Tonsils symmetric. No tonsillar enlargement, erythema, or exudate. Eyes: Conjunctivae normal. EOM normal. Pupils equal, round, and reactive to light. No scleral icterus. Neck: Normal range of motion. Neck supple. No tracheal deviation present. No JVD Cardiovascular: Normal rate, regular rhythm. No gallop. No friction rub. No murmur heard. Symmetric radial and PT artery pulses Pulmonary/Chest: Effort normal. No stridor. No respiratory distress. No wheezes. No rales. No rhonchi . No tenderness. Abdominal: Soft. Bowel sounds normal. No distension. No mass. Marked epigastric, left upper quadrant, right upper quadrant tenderness. No rebound. No guarding. Musculoskeletal: RUE: Normal range of motion. No tenderness. No deformity LUE: Normal range of motion. No tenderness. No deformity RLE: Normal range of motion. No edema. No tenderness. No deformity LLE: Normal range of motion. No edema. No tenderness. No deformity Neurological: Alert and oriented to person, place, and time. Normal strength. CN II-VII intact. No sensory deficit. GCS eye subscore is 4. GCS verbal subscore is 5. GCS motor subscore is 6. Normal coordination Skin: Skin is warm and dry. No rash noted. No pallor. Normal capillary refill. Psychiatric: Normal mood. Normal affect. Const: Vital Signs, click to edit/add: Vital Signs - 24 hr 06/11/24 12:26 06/11/24 15:49 06/11/24 19:00 Temperature 98.4 F 99.5 F Pulse Rate [Pulse Oximeter] 78 72 Respiratory Rate 18 18 Blood Pressure [Ri ght Upper Arm] 157/76 H 140/78 H Pulse Oximetry 97 94 99 Oxygen Delivery Me thod Room Air Room Air 06/11/24 20:33 Temperature 99.5 F Pulse Rate [Pulse Oximeter] 79 Respiratory Rate 18 Blood Pressure [Ri ght Upper Arm] 132/68 Pulse Oximetry 94 Oxygen Delivery Me thod Room Air Course Course ED Course: Patient seen and examined in ER bed 5. He politely but firmly declines offered pain meds. Agrees to workup. Reevaluation(s) Reevaluation #1: CT scan shows evidence for abnormal pancreas, also strictures of the biliary tree, and possible abnormalities in the pancreatic head. Reevaluation #2: Discussed with our hospitalist, Dr. Lara. He agrees to admit the patient for treatment of pancreatitis and request that we try to get MRI of his pancreas done in the ER today since the is forthcoming and would not be available until next Friday if not done today. Discussed with the patient. He is willing to stay for MRI but does not want to be hospitalized. He strongly wants to go home Reevaluation #3: Recheck-patient passed p.o. challenge. Additional Reevaluation(s): Recheck-8:00 p.m.. Patient frustrated with long wait for MRI results. He recent stay a few more minutes. I call the radiology department to have them expedite the read. Also called our imaging department so we can make a digital copy of all the patient's CTs and MR today. Patient wants to go home and will follow-up outpatient with his healthcare facility administrator at [facility]. Vital Signs Vital signs: Initial Vital Signs Temperature 98.4 F 06/11/24 12:26 Temperature Source Temporal Artery Scan 06/11/24 12: Pulse Rate 78 06/11/24 12: Respiratory Rate 18 06/11/24 12: Blood Pressure 157/76 H 06/11/24 12:26 Blood Pressure Mean 103 06/11/24 12:26 Blood Pressure Position Sitting 06/11/24 12:26 Pulse Oximetry 97 06/11/24 12:26 Oxygen Delivery Method Room Air 06/11/24 12:26 Vital Signs Temperature 98.4 F 06/11/24 12:26 Pulse Rate 78 06/11/24 12:26 Respiratory Rate 18 06/11/24 12:26 Blood Pressure 157/76 H 06/11/24 12:26 Pulse Oximetry 97 06/11/24 12:26 Oxygen Delivery Method Room Air 06/11/24 12:26 Temperature 99.5 F 06/11/24 20:33 Pulse Rate 79 06/11/24 20:33 Respiratory Rate 18 06/11/24 20:33 Blood Pressure 132/68 06/11/24 20:33 Pulse Oximetry 94 06/11/24 20:33 Oxygen Delivery Method Room Air 06/11/24 20:33 Medical Decision Making MDM Narrative Medical decision making narrative: Pleasant 63-year-old gentleman referred from the Urgent Care to the ER today for evaluation of leukocytosis. He has had epigastric and lower chest pain for the past couple of days ever since he ate lunch on Friday P Differential is broad. EKG and troponin are normal. No evidence for cardiac ischemia. Chest CT is negative for PE pneumonia a half, pneumothorax, pleural effusion, or other cause for chest pain. He is not having any ripping or tearing pain through the back so I think overall is low risk for aortic dissection. Laboratory workup does show elevated lipase suggestive of another flare of acute pancreatitis per CT imaging of his abdomen pelvis shows evidence for pancreatitis and abnormalities in the pancreatic head which require follow-up imaging with pancreatic MRI and MRCP. My initial plan for this patient was to admit him for further workup and pain control and supportive care in the setting of pancreatitis. However the patient is refusing admission and wants to go home. He is willing to stay for MRI. MRI came back showing no clear evidence for pancreatic mass. It does show dilated common bile duct and probable stricture distally. He will need follow-up ERCP. He is refusing to stay in the hospital and would not want to be hospitalized today or transferred for ERCP. He says he wants to follow up outpatient with his doctor at [facility]. He is provided with digital copies of his imaging friend to take to his follow-up visit. He is invited to return the ER right away if he changes his mind about hospitalization or if he has any worsening his condition. He is very eager for discharge and frustrated about how long he had to wait for the MRI. Overall he looks good and has been able to pass p.o. challenge here in the ER. Therefore I will not make him discharged against medical advice. He will return to the ER if he has worsening or uncontrolled pain, weakness, nausea vomiting, or any concerns. Incidental note of a small pulmonary nodule. Discussed with the patient. He is a former smoker so would have risk for malignancy. Will need follow-up with primary care to arrange follow-up CT imaging in 6-12 months. Lab Data Labs: Lab Results 06/11/24 06/11/24 Range/Units 13:00 13:06 WBC 22.43 H (4.50-11.00) K/uL RBC 4.64 (4.30-5.90) m/uL Hgb 14.6 (13.5-17.5) gm/dL Hct 43.8 (37.0-53.0) % MCV 94 (80-100) fL MCH 32 (26-34) pg MCHC 33 (32-36) gm/dL RDW Coeff of Amadeo 12.7 (11.5-15.5) % Plt Count 295 (140-440) K/uL Neut % (Auto) 86.8 H (42.0-72.0) % Lymph % (Auto) 4.5 L (20-44) % Dukes % (Auto) 8.3 (0.0-11.0) % Eos % (Auto) 0.1 (0.0-7.0) % Baso % (Auto) 0.1 (0.0-3.0) % Neut # (Auto) 19.50 H (1.7-7.0) K/uL Lymph # (Auto) 1.00 (0.90-2.90) K/uL Dukes # (Auto) 1.90 H (0.00-0.90) K/UL Eos # (Auto) 0.00 (0.00-0.50) K/uL Baso # (Auto) 0.00 (0.00-0.30) K/uL Abs Immat Gran (auto) 0.00 (0.00-0.30) K/uL Imm/Tot Granulo (auto) 0.2 % Sodium 133 L (135-149) mmol/L Potassium 4.2 (3.6-5.1) mmol/L Chloride 98 (96-114) mmol/L Carbon Dioxide 28 (20-32) mmol/L Anion Gap 7 (7-15) mEq/L BUN 25 (7-30) mg/dL Creatinine 0.7 (0.5-1.5) mg/dL Estimated Creat Clear 55.75 Estimated GFR 102 ml/min Glucose 143 H (60-115) mg/dL Lactate 1.8 (0.5-1.9) mmol/L Calcium 9.4 (8.4-10.6) mg/dL Total Bilirubin 1.2 (0.1-1.5) mg/dL AST 27 (12-35) U/L ALT 16 (4-50) U/L Alkaline Phosphatase 90 (40-150) U/L Troponin I < 0.01 L (0.01-0.04) ng/mL Total Protein 7.5 (6.0-8.3) g/dL Albumin 4.5 (3.3-5.0) g/dL Lipase 3854 H (23-300) U/L Lab Acknowledgement Test Added Imaging Data CT scan - chest: Attestation: I have reviewed the pertinent imaging results. Radiologist's impression: IMPRESSION: No pulmonary embolism. There is a 2 millimeter pulmonary nodule in the left upper lobe. In a high-risk patient, repeat CT chest can be considered in 12 months. No follow-up indicated in low risk patients. CT scan - abdomen: Attestation: I have reviewed the pertinent imaging results. Radiologist's impression: IMPRESSION: 1. Calcifications at the head of the pancreas with main pancreatic duct dilation may be related to chronic pancreatitis changes. In addition there is a hypodensity at the head of the pancreas likely a cyst, this is stable compared to prior. However, there is ill-defined hypodensity near the head of the pancreas. Consider repeat nonemergent pancreatic protocol MRI for further evaluation as this is new compared to the prior CT. 2. Dilated intra and extrahepatic biliary ducts with narrowing at the head of the pancreas. The main pancreatic duct is also dilated narrowing at the head of the pancreas. This may be related to chronic pancreatitis changes versus mass lesion at the head of the pancreas. 3. Diffuse thickening of the antrum of the stomach with mucosal enhancement. This may be related to underlying gastritis or ulceration. Consider further evaluation with EGD. 4. Mild circumferential bladder wall thickening, may be related to incomplete distention. Correlate with UA for cystitis. ECG Data Attestation: I personally reviewed and interpreted this ECG as follows: Interpretation: Normal sinus rhythm Rate: 67 W[place]: 144 QRS axis: Normal axis. ST segment/T wave: No ST segment elevation or depression. QTc: For 24 Discharge Plan Discharge Clinical Impression: Acute pancreatitis, Leukocytosis, Pulmonary nodule, Bile duct stricture Patient Disposition: Home, Self-Care Condition: Stable Instructions: Pancreatitis (ED) Additional Instructions: As we discussed, please stick to a light diet and a low-fat diet. Drink plenty of fluids to stay hydrated. Please follow-up with Dr. Cheng at [facility] as soon as possible. Please make a follow-up visit with your regular doctor within the next 1-3 weeks so that they can recheck for your pulmonary nodule. You likely will need a follow-up CT scan in 6-12 months. Remember, if you have any worsening or uncontrolled pain, vomiting, dehydration, weakness, fever, or any problems, please come back to the ER right away. Prescriptions: No Action albuterol sulfate 90 mcg/actuation HFA aerosol inhaler 1 - 2 puff INHALATION Q6H PRN (Reason: dyspnea) Follow Up/Referrals: Harshil Koo MD [Primary Care Provider] - Stand Alone Forms: [employer] Info Instructions
--- NOTE | 2024-06-11 12:52 | CRLHL7_ITS ---
For Patients: As a result of the Century Cures Act, medical imaging exams and procedure reports are released immediately into your electronic medical record. You may view this report before your referring provider. If you have questions, please contact your health care provider. INDICATION: CP. EPIGASTRIC ABD PAIN. TECHNIQUE: CT abdomen and pelvis acquired with 100 cc Omnipaque 350 IV contrast. COMPARISON: August 12, 2023 CT of the abdomen and pelvis. FINDINGS: Lower chest: Emphysematous changes in the bases. Liver: A few scattered too small to characterize hypodensities likely cysts. Probable subtle edema within the liver. Gallbladder and bile ducts: Gallbladder is unremarkable. Intra and extrahepatic biliary ductal dilatation. The CBD is narrowed near the head of the pancreas. Pancreas: Calcifications in the pancreas likely related to chronic pancreatitis. Dilated main pancreatic duct which narrows near the head of the pancreas. Subtle ill-defined hypodensity adjacent to the head of the pancreas may represent fluid or infiltration. Spleen: Unremarkable. Normal in size. No masses. Adrenal glands: Unremarkable. No nodules. Kidneys: Unremarkable. No suspicious masses, stones, or hydronephrosis. GI tract: Thickening at the antrum of the stomach is noted. There is mild mucosal enhancement in this region as well. No bowel obstruction. Appendix is not well visualized. Vasculature: Abdominal aorta is normal in caliber. Mesenteric arteries are patent. Calcific and soft plaque atherosclerosis of the abdominal aorta and iliac vessels. Lymph nodes: No lymphadenopathy. Peritoneum/Abdominal Wall: Unremarkable. No sign of mass or infiltration. No free air or significant free fluid. Pelvis: Mild circumferential bladder wall thickening, may be related to incomplete distention. Correlate with UA for cystitis.. Bones: Sclerosis at the head of the left femur may represent avascular necrosis. Diffuse degenerative changes. IMPRESSION: 1. Calcifications at the head of the pancreas with main pancreatic duct dilation may be related to chronic pancreatitis changes. In addition there is a hypodensity at the head of the pancreas likely a cyst, this is stable compared to prior. However, there is ill-defined hypodensity near the head of the pancreas. Consider repeat nonemergent pancreatic protocol MRI for further evaluation as this is new compared to the prior CT. 2. Dilated intra and extrahepatic biliary ducts with narrowing at the head of the pancreas. The main pancreatic duct is also dilated narrowing at the head of the pancreas. This may be related to chronic pancreatitis changes versus mass lesion at the head of the pancreas. 3. Diffuse thickening of the antrum of the stomach with mucosal enhancement. This may be related to underlying gastritis or ulceration. Consider further evaluation with EGD. 4. Mild circumferential bladder wall thickening, may be related to incomplete distention. Correlate with UA for cystitis. Please note that all CT scans at this facility use dose modulation, iterative reconstruction, and/or weight-based dosing when appropriate to reduce radiation dose to as low as reasonably achievable. Dictated by Florentino Beltran MD @ 06/11/2024 4:10:06 PM (Electronically Signed)
--- NOTE | 2024-06-11 12:52 | CRLHL7_ITS ---
For Patients: As a result of the Century Cures Act, medical imaging exams and procedure reports are released immediately into your electronic medical record. You may view this report before your referring provider. If you have questions, please contact your health care provider. INDICATION: Chest pain TECHNIQUE: CT chest PE was acquired with 95 cc Isovue 370 IV contrast. COMPARISON: None. FINDINGS: Heart and vasculature: Contrast opacification of the pulmonary arterial tree is adequate. No sign of pulmonary embolism. Heart size is normal. Mild atherosclerosis of the aortic arch and origin of the left skull Couch artery. Trace RCA, left main and LAD coronary artery calcification. Thoracic aorta and pulmonary artery are normal in caliber. Lungs and pleura: Moderate upper lobe predominant centrilobular and paraseptal emphysema. There is a 2 millimeter nodule in the left upper lobe (7/59). Lymph nodes/mediastinum: No mediastinal, hilar, or axillary adenopathy. Chest wall: No masses. Upper abdomen: See separately dictated CT abdomen pelvis. Bones: Unremarkable for age. IMPRESSION: No pulmonary embolism. There is a 2 millimeter pulmonary nodule in the left upper lobe. In a high-risk patient, repeat CT chest can be considered in 12 months. No follow-up indicated in low risk patients. Please note that all CT scans at this facility use dose modulation, iterative reconstruction, and/or weight-based dosing when appropriate to reduce radiation dose to as low as reasonably achievable. Dictated by Jolene Marquez MD @ 06/11/2024 2:58:34 PM (Electronically Signed)
[2024-06-11 13:17] LABS: Lactate* 1.8 mmol/L (0.5-1.9)
[2024-06-11 13:21] LABS: Basophils Percent Auto 0.1 % (0.0-3.0); Eosinophils Percent Auto 0.1 % (0.0-7.0); Hematocrit 43.8 % (37.0-53.0); Hemoglobin* 14.6 gm/dL (13.5-17.5); Immature Granulocytes Pct Auto 0.2 %; Lymphocytes Percent Auto 4.5 % (20-44); Mean Corpuscular HGB Conc 33 gm/dL (32-36); Mean Corpuscular Hemoglobin 32 pg (26-34); Mean Corpuscular Volume 94 fL (80-100); Monocytes Percent Auto 8.3 % (0.0-11.0); Neutrophils Percent Auto 86.8 % (42.0-72.0); Platelet Count* 295 K/uL (140-440); RDW Coefficient of Variation % 12.7 % (11.5-15.5); Red Blood Count 4.64 m/uL (4.30-5.90); White Blood Count* 22.43 K/uL (4.50-11.00)
[2024-06-11 13:22] LABS: Slide Review Reflex No
[2024-06-11 13:38] LABS: Albumin* 4.5 g/dL (3.3-5.0); Chloride* 98 mmol/L (96-114)
[2024-06-11 13:39] LABS: Potassium* 4.2 mmol/L (3.6-5.1); Sodium* 133 mmol/L (135-149)
[2024-06-11 13:41] LABS: Anion Gap 7 mEq/L (7-15); Aspartate Amino Transferase* 27 U/L (12-35); Bilirubin Total* 1.2 mg/dL (0.1-1.5); Carbon Dioxide* 28 mmol/L (20-32); Creatinine* 0.7 mg/dL (0.5-1.5); Est. Creatinine Clearance* 55.75; Estimated Glomerular Filt Rate 102 ml/min; Total Protein* 7.5 g/dL (6.0-8.3)
[2024-06-11 13:42] LABS: Alanine Aminotransferase* 16 U/L (4-50); Alkaline Phosphatase* 90 U/L (40-150); Blood Urea Nitrogen* 25 mg/dL (7-30); Calcium* 9.4 mg/dL (8.4-10.6); Glucose* 143 mg/dL (60-115)
[2024-06-11 13:51] LABS: Lipase* 3854 U/L (23-300)
[2024-06-11 13:53] LABS: Troponin I* < 0.01 ng/mL (0.01-0.04)
[2024-06-11 15:49] VITALS: BP 140/78; PULSE 72; RESP 18; TEMP 37.5; O2SAT 94
--- NOTE | 2024-06-11 16:19 | CRLHL7_ITS ---
For Patients: As a result of the Century Cures Act, medical imaging exams and procedure reports are released immediately into your electronic medical record. You may view this report before your referring provider. If you have questions, please contact your health care provider. Indication: Pancreatitis, possible pancreatic head mass common bile duct stricture. Technique: Multisequence multiplanar MRI of the abdomen both with and without IV contrast (20 mL Dotarem). Comparison: CT abdomen/pelvis earlier same day, dated 06/11/2024. Findings: Liver: No significant hepatic steatosis. Scattered punctate cysts. Bile ducts: Dilated common bile duct measuring up to 1.1 cm in maximal diameter. No definite choledocholithiasis identified. There is focal narrowing just upstream to the level of the ampulla. Gallbladder: Punctate adherent gallstone versus gallbladder polyp towards the gallbladder neck. No pericholecystic fluid. Punctate filling defects are noted within the cystic duct, compatible with small calculi. Pancreas: Morphologic sequelae of chronic pancreatitis, with irregular dilated main pancreatic duct. 1.8 cm cyst at the pancreatic neck contains a punctate calcification, no suspicious enhancing nodularity. This may reflect a dilated side branch duct. There is a prominent focus of enhancing soft tissue measuring 1.3 x 1.0 cm (series 15, image 22), where the pancreatic duct is dilated upstream to this. Spleen: Unremarkable. Adrenals: Unremarkable. Kidneys: No hydronephrosis bilaterally. Multifocal cortical scarring and cysts in the right kidney, unchanged. Retroperitoneum: No lymphadenopathy. Visualized Bowel and mesentery: Visualized bowel is not dilated. No significant ascites. Vessels: Extensive atherosclerotic plaque of the abdominal aorta. Abdominal wall: No acute abdominal wall abnormality. Bones: No suspicious/aggressive enhancing focal osseous lesion. Impression: 1. Prominent focus of enhancing soft tissue at the pancreatic head/neck, where the pancreatic duct is dilated upstream to this. Recommend further evaluation with ERCP. 2. Dilated common bile duct measuring up to 1.1 cm. No choledocholithiasis is identified, however there is focal narrowing just upstream to the level of the ampulla. This can also be further evaluated with ERCP. 3. Punctate filling defects are noted within the cystic duct, compatible with small calculi. Additional punctate adherent gallstone versus gallbladder polyp towards the gallbladder neck. No secondary signs of acute cholecystitis. 4. Morphologic sequela of chronic pancreatitis. 1.8 cm cyst at the pancreatic neck contains a punctate calcification, and no suspicious enhancing nodularity. This may reflect a dilated side branch duct. Dictated by Kris Morrison MD @ 06/11/2024 8:25:56 PM (Electronically Signed)
[2024-06-11 19:00] VITALS: O2SAT 99
[2024-06-11 20:33] VITALS: BP 132/68; PULSE 79; RESP 18; TEMP 37.5; O2SAT 94
== END 2024-06-11 20:57 | disposition home or self-care (01) ==
PROVIDERS: Emergency Provider Emergency Medicine; PCP Family Medicine
DX: K85.90 Acute pancreatitis without necrosis or infection, unspecified (principal); D72.829 Elevated white blood cell count, unspecified; R91.1 Solitary pulmonary nodule; K83.1 Obstruction of bile duct
CPT/HCPCS: 36415; 71275; 74177; 74183; 80053; 83605; 83690; 84484; 85025; 93005; 94761; 99284; 99285; A9575; Q9967

== ENCOUNTER 2024-06-24 12:11 | Emergency (ER) | payer OTHER, SELFPAY ==
[2024-06-24] VITALS (58 sets, daily range): BP systolic 90–181; BP diastolic 54–99; PULSE 54–90; RESP 16; TEMP 36.4–36.6; O2SAT 88–100; BMI 16.8
--- NOTE | 2024-06-24 13:34 | ED_ITS ---
HPI - General Adult General Time Seen by Provider: 13:34 <Magdalena Thrasher MD - Last Filed: 06/24/24 21:55> Date Seen: 06/24/24 <Magdalena Thrasher MD - Last Filed: 06/24/24 21:55> Chief complaint: Abdominal Pain <Magdalena Thrasher MD - Last Filed: 06/24/24 21:55> Stated complaint: Dehydration/abdominal pain <Magdalena Thrasher MD - Last Filed: 06/24/24 21:55> Time Seen by Provider: 06/24/24 13:18 <Magdalena Thrasher MD - Last Filed: 06/24/24 21:55> Source: patient and RN notes reviewed <Magdalena Thrasher MD - Last Filed: 06/24/24 21:55> Mode of arrival: ambulatory <Magdalena Thrasher MD - Last Filed: 06/24/24 21:55> Limitations: no limitations <Magdalena Thrasher MD - Last Filed: 06/24/24 21:55> History of Present Illness HPI narrative: This 63-year-old male is referred from [facility] where he was seen Dr. Koo for follow-up of pancreatitis. 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 He initially was diagnosed on June 11 here in our ER but refused hospitalization, drove himself up to [place] on June 15. 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 Last episode of pancreatitis was 2014. He was dis charged to follow-up with Dr. Cheng at [facility] for outpatient ERCP and endoscopic ultrasound but has yet to hear from them. [place] [address] on admission, 18,700 on discharge, blood cultures were negative. He was using oxycodone for pain control. He notes that he had been able to eat a little bit but yesterday started vomiting every 30 minutes again, last episode of vomiting around 3:00 a.m.. He has not noted any fevers chills or sweats up to this point but states he is starting to feel chilled here. He is noted no blood in the vomit. Had a normal bowel movement yesterday. He feels his abdominal pain is worse now. Of note he was given 8 tablets of oxycodone on discharge. He does still have his gallbladder, states his only abdominal surgery was appendectomy as a child. <Magdalena Thrasher MD - Last Filed: 06/24/24 21:55> Related Data Home medications: Home Medications ?Medication ?Instructions ?Recorded ?Confirmed No Known Home Medications 06/24/24 06/24/24 <Magdalena Thrasher MD - Last Filed: 06/24/24 21:55> Allergies/adverse reactions: Allergies Allergy/AdvReac Type Severity Reaction Status Date / Time No Known Drug Allergies Allergy Verified 06/24/24 14:18 <Magdalena Thrasher MD - Last Filed: 06/24/24 21:55> Review of Systems 2 Status of ROS: Reports: 6 or more systems reviewed and unremarkable except as noted in History and below <Magdalena Thrasher MD - Last Filed: 4 21:55> [facility] Medical History: Medical History Pancreatic cyst ?K86.2 - Cyst of pancreas (ICD-10) Pancreatitis ?K85.90 - Acute pancreatitis without necrosis or infection, unspecified (ICD-10) History of biliary stent insertion ?Z98.890 - Other specified postprocedural states (ICD-10) Alcohol abuse ?F10.10 - Alcohol abuse, uncomplicated (ICD-10) Smoking 1/2 pack a day or less ?F17.210 - Nicotine dependence, cigarettes, uncomplicated (ICD-10) Pancreatic duct stricture ?K86.89 - Other specified diseases of pancreas (ICD-10) Chronic alcoholic pancreatitis ?K86.0 - Alcohol-induced chronic pancreatitis (ICD-10) <Magdalena Thrasher MD - Last Filed: 06/24/24 21:55> Surgical History: Surgical History Hx of appendectomy ?Z90.49 - Acquired absence of other specified parts of digestive tract (ICD- 10) <Magdalena Thrasher MD - Last Filed: 06/24/24 21:55> Social History: Social History Narrative: He lives in [place]. Closest contact is his sister. He works in the [employer]. Former history of alcohol abuse until 2011. Smokes about a half pack of cigarettes a day. He has been cautious about eating fatty foods. What is your current living situation?: I presently have a place to live Problems where you live: no known problems Problems where you live details: n/a In the past 12 months, utilities in danger of being shut off: no In past 12 months, lack of transportation kept you from medical appts, meetings, work, or getting things needed for daily living: no In the past 12 mos, have been you worried that your food would run out before you had money to buy more?: never true In the past 12 mos, the food you bought just didn't last and you didn't have money to buy more?: never true Highest level of school completed/degree received: Associate degree: occupational, technical, vocational program Smoking Status: Current some day smoker What tobacco products do you use: cigarettes Smoking packs per day: 0.4 Smoking cigarettes per day: 8.0 Years smoked: 50 Smoking pack-years: 20.00 Do you use any of these nicotine containing products: None How often do you have a drink containing alcohol: never AUDIT-C Alcohol total score: 0 Non-prescribed substance use: marijuana (any form) Non-prescribed substance use details: some days uses thc Caffeine: No How often does anyone, including family, friends and others, physically hurt you : never How often does anyone, including family, friends and others, insult or talk down to you: never How often does anyone, including family, friends and others, threaten you with harm: never How often does anyone, including family, friends and others, scream or curse at you: never service: No <Magdalena Thrasher MD - Last Filed: 06/24/24 21:55> Exam Const: Vital Signs, click to edit/add: Vital Signs - 24 hr 06/24/24 16:30 06/24/24 16:32 06/24/24 16:33 Temperature Pulse Rate 60 62 61 Pulse Rate [Pulse Oximeter] Respiratory Rate Blood Pressure 145/80 H Blood Pressure [Ri ght Upper Arm] Pulse Oximetry 97 96 97 Oxygen Delivery Me thod 06/24/24 16:45 06/24/24 16:46 06/24/24 17:09 Temperature Pulse Rate 67 67 Pulse Rate [Pulse Oximeter] Respiratory Rate Blood Pressure 138/86 Blood Pressure [Ri ght Upper Arm] Pulse Oximetry 96 95 92 Oxygen Delivery Me thod Room Air 06/24/24 17:12 06/24/24 17:15 06/24/24 17:30 Temperature Pulse Rate 70 64 60 Pulse Rate [Pulse Oximeter] Respiratory Rate Blood Pressure Blood Pressure [Ri ght Upper Arm] Pulse Oximetry 89 92 92 Oxygen Delivery Me thod 06/24/24 17:32 06/24/24 17:33 06/24/24 17:45 Temperature Pulse Rate 62 63 63 Pulse Rate [Pulse Oximeter] Respiratory Rate Blood Pressure 138/98 H Blood Pressure [Ri ght Upper Arm] Pulse Oximetry 91 90 88 Oxygen Delivery Me thod 06/24/24 18:00 06/24/24 18:02 06/24/24 18:03 Temperature Pulse Rate 64 67 62 Pulse Rate [Pulse Oximeter] Respiratory Rate Blood Pressure 119/86 Blood Pressure [Ri ght Upper Arm] Pulse Oximetry 96 97 96 Oxygen Delivery Me thod 06/24/24 18:15 06/24/24 18:30 06/24/24 18:32 Temperature Pulse Rate 60 63 61 Pulse Rate [Pulse Oximeter] Respiratory Rate Blood Pressure 142/78 H Blood Pressure [Ri ght Upper Arm] Pulse Oximetry 98 96 97 Oxygen Delivery Me thod 06/24/24 18:45 06/24/24 19:00 06/24/24 19:02 Temperature Pulse Rate 58 L 61 71 Pulse Rate [Pulse Oximeter] Respiratory Rate Blood Pressure 181/99 H Blood Pressure [Ri ght Upper Arm] Pulse Oximetry 96 98 98 Oxygen Delivery Me thod 06/24/24 19:15 06/24/24 19:28 06/24/24 19:30 Temperature Pulse Rate 60 70 68 Pulse Rate [Pulse Oximeter] Respiratory Rate Blood Pressure 121/82 Blood Pressure [Ri ght Upper Arm] Pulse Oximetry 97 98 98 Oxygen Delivery Me thod 06/24/24 19:32 06/24/24 19:32 06/24/24 19:45 Temperature Pulse Rate 74 74 59 L Pulse Rate [Pulse Oximeter] Respiratory Rate Blood Pressure 147/85 H 147/85 H Blood Pressure [Ri ght Upper Arm] Pulse Oximetry 99 99 99 Oxygen Delivery Me thod 06/24/24 20:00 06/24/24 20:02 06/24/24 20:15 Temperature Pulse Rate 65 63 66 Pulse Rate [Pulse Oximeter] Respiratory Rate Blood Pressure 130/83 Blood Pressure [Ri ght Upper Arm] Pulse Oximetry 98 97 98 Oxygen Delivery Me thod 06/24/24 20:30 06/24/24 20:32 06/24/24 20:45 Temperature Pulse Rate 57 L 63 54 L Pulse Rate [Pulse Oximeter] Respiratory Rate Blood Pressure 142/61 H Blood Pressure [Ri ght Upper Arm] Pulse Oximetry 98 98 97 Oxygen Delivery Me thod 06/24/24 21:00 06/24/24 21:02 06/24/24 21:15 Temperature Pulse Rate 58 L 58 L 56 L Pulse Rate [Pulse Oximeter] Respiratory Rate Blood Pressure 132/54 L Blood Pressure [Ri ght Upper Arm] Pulse Oximetry 97 97 96 Oxygen Delivery Me thod 06/24/24 21:30 06/24/24 21:31 06/24/24 23:00 Temperature Pulse Rate 55 L 65 Pulse Rate [Pulse Oximeter] 74 Respiratory Rate 16 Blood Pressure 112/61 Blood Pressure [Ri ght Upper Arm] 109/71 Pulse Oximetry 97 98 100 Oxygen Delivery Me thod Room Air 06/24/24 23:32 06/24/24 23:45 06/25/24 00:00 Temperature Pulse Rate 58 L 58 L 57 L Pulse Rate [Pulse Oximeter] Respiratory Rate Blood Pressure 126/72 Blood Pressure [Ri ght Upper Arm] Pulse Oximetry 94 96 92 Oxygen Delivery Me thod 06/25/24 00:02 06/25/24 00:15 06/25/24 00:30 Temperature Pulse Rate 57 L 56 L 64 Pulse Rate [Pulse Oximeter] Respiratory Rate Blood Pressure 137/70 Blood Pressure [Ri ght Upper Arm] Pulse Oximetry 92 97 97 Oxygen Delivery Me thod 06/25/24 00:31 06/25/24 00:45 06/25/24 01:00 Temperature Pulse Rate 57 L 57 L 56 L Pulse Rate [Pulse Oximeter] Respiratory Rate Blood Pressure 138/62 Blood Pressure [Ri ght Upper Arm] Pulse Oximetry 97 97 97 Oxygen Delivery Me thod 06/25/24 01:01 06/25/24 01:15 06/25/24 01:30 Temperature Pulse Rate 56 L 56 L 56 L Pulse Rate [Pulse Oximeter] Respiratory Rate Blood Pressure 117/54 L Blood Pressure [Ri ght Upper Arm] Pulse Oximetry 97 97 98 Oxygen Delivery Me thod 06/25/24 01:32 06/25/24 01:45 06/25/24 02:00 Temperature Pulse Rate 59 L 62 59 L Pulse Rate [Pulse Oximeter] Respiratory Rate Blood Pressure 146/67 H Blood Pressure [Ri ght Upper Arm] Pulse Oximetry 98 96 93 Oxygen Delivery Me thod 06/25/24 02:02 06/25/24 02:15 06/25/24 02:19 Temperature Pulse Rate 60 63 Pulse Rate [Pulse Oximeter] 58 L Respiratory Rate 16 Blood Pressure 138/84 Blood Pressure [Ri ght Upper Arm] 138/84 Pulse Oximetry 93 93 93 Oxygen Delivery Me thod Room Air 06/25/24 02:30 06/25/24 02:31 06/25/24 02:45 Temperature Pulse Rate 60 60 55 L Pulse Rate [Pulse Oximeter] Respiratory Rate Blood Pressure 146/71 H Blood Pressure [Ri ght Upper Arm] Pulse Oximetry 96 96 97 Oxygen Delivery Me thod 06/25/24 03:00 06/25/24 03:02 06/25/24 03:15 Temperature Pulse Rate 55 L 55 L 54 L Pulse Rate [Pulse Oximeter] Respiratory Rate Blood Pressure 129/54 L Blood Pressure [Ri ght Upper Arm] Pulse Oximetry 99 99 98 Oxygen Delivery Me thod 06/25/24 03:30 06/25/24 03:32 06/25/24 03:45 Temperature Pulse Rate 54 L 52 L 50 L Pulse Rate [Pulse Oximeter] Respiratory Rate Blood Pressure 116/55 L Blood Pressure [Ri ght Upper Arm] Pulse Oximetry 99 98 99 Oxygen Delivery Me thod 06/25/24 04:00 06/25/24 04:02 06/25/24 04:05 Temperature 98 F Pulse Rate 51 L 58 L Pulse Rate [Pulse Oximeter] 56 L Respiratory Rate 16 Blood Pressure 97/66 Blood Pressure [Ri ght Upper Arm] 97/66 Pulse Oximetry 98 99 98 Oxygen Delivery [facility] Room Air 06/25/24 04:15 06/25/24 04:30 06/25/24 04:32 Temperature Pulse Rate 52 L 50 L 49 L Pulse Rate [Pulse Oximeter] Respiratory Rate Blood Pressure 115/61 Blood Pressure [Ri ght Upper Arm] Pulse Oximetry 96 96 95 Oxygen Delivery [facility] 06/25/24 04:45 06/25/24 05:03 06/25/24 05:15 Temperature Pulse Rate 50 L 79 53 L Pulse Rate [Pulse Oximeter] Respiratory Rate Blood Pressure Blood Pressure [Ri ght Upper Arm] Pulse Oximetry 96 92 93 Oxygen Delivery [facility] 06/25/24 05:30 06/25/24 05:45 06/25/24 06:00 Temperature Pulse Rate 54 L 54 L 53 L Pulse Rate [Pulse Oximeter] Respiratory Rate Blood Pressure Blood Pressure [Ri ght Upper Arm] Pulse Oximetry 92 91 92 Oxygen Delivery [facility] 06/25/24 06:02 06/25/24 06:15 06/25/24 06:24 Temperature 97.6 F Pulse Rate 52 L 53 L Pulse Rate [Pulse Oximeter] 52 L Respiratory Rate 16 Blood Pressure 103/58 L Blood Pressure [Ri ght Upper Arm] 103/58 L Pulse Oximetry 92 89 92 Oxygen Delivery [facility] Room Air 06/25/24 06:30 06/25/24 06:45 06/25/24 07:00 Temperature Pulse Rate 49 L 54 L 52 L Pulse Rate [Pulse Oximeter] Respiratory Rate Blood Pressure Blood Pressure [Ri ght Upper Arm] Pulse Oximetry 92 94 93 Oxygen Delivery [facility] 06/25/24 07:15 06/25/24 07:30 06/25/24 07:45 Temperature Pulse Rate 49 L 48 L 49 L Pulse Rate [Pulse Oximeter] Respiratory Rate Blood Pressure Blood Pressure [Ri ght Upper Arm] Pulse Oximetry 95 96 96 Oxygen Delivery [facility] 06/25/24 08:00 06/25/24 08:01 06/25/24 08:15 Temperature Pulse Rate 55 L 49 L 49 L Pulse Rate [Pulse Oximeter] Respiratory Rate Blood Pressure 114/61 Blood Pressure [Ri ght Upper Arm] Pulse Oximetry 96 96 95 Oxygen Delivery [facility] 06/25/24 08:30 06/25/24 08:45 06/25/24 09:00 Temperature Pulse Rate 48 L 58 L 48 L Pulse Rate [Pulse Oximeter] Respiratory Rate Blood Pressure Blood Pressure [Ri ght Upper Arm] Pulse Oximetry 96 100 99 Oxygen Delivery [place] th[facility] 06/25/24 09:15 06/25/24 09:30 06/25/24 09:45 Temperature Pulse Rate 48 L 51 L 50 L Pulse Rate [Pulse Oximeter] Respiratory Rate Blood Pressure Blood Pressure [Ri ght Upper Arm] Pulse Oximetry 100 99 99 Oxygen Delivery [place] [facility] 06/25/24 10:00 06/25/24 10:02 06/25/24 10:15 Temperature Pulse Rate 57 L 59 L 48 L Pulse Rate [Pulse Oximeter] Respiratory Rate Blood Pressure 144/71 H Blood Pressure [Ri ght Upper Arm] Pulse Oximetry 99 98 100 Oxygen Delivery [place] th[facility] 06/25/24 10:30 06/25/24 10:45 06/25/24 11:00 Temperature Pulse Rate 51 L 59 L 50 L Pulse Rate [Pulse Oximeter] Respiratory Rate Blood Pressure Blood Pressure [Ri ght Upper Arm] Pulse Oximetry 100 100 100 Oxygen Delivery [place] th[facility] 06/25/24 11:15 06/25/24 11:35 06/25/24 11:45 Temperature Pulse Rate 50 L 60 54 L Pulse Rate [Pulse Oximeter] Respiratory Rate Blood Pressure Blood Pressure [Ri ght Upper Arm] Pulse Oximetry 100 91 94 Oxygen Delivery [place] th[facility] 06/25/24 12:00 06/25/24 12:02 06/25/24 12:15 Temperature Pulse Rate 55 L 59 L 53 L Pulse Rate [Pulse Oximeter] Respiratory Rate Blood Pressure 94/61 Blood Pressure [Ri ght Upper Arm] Pulse Oximetry 92 93 93 Oxygen Delivery [place] thod 06/25/24 12:30 06/25/24 12:45 06/25/24 13:00 Temperature Pulse Rate 52 L 53 L 55 L Pulse Rate [Pulse Oximeter] Respiratory Rate Blood Pressure Blood Pressure [Ri ght Upper Arm] Pulse Oximetry 94 92 93 Oxygen Delivery [place] thod 06/25/24 13:15 06/25/24 13:30 06/25/24 13:45 Temperature Pulse Rate 57 L 53 L 53 L Pulse Rate [Pulse Oximeter] Respiratory Rate Blood Pressure Blood Pressure [Ri ght Upper Arm] Pulse Oximetry 93 93 94 Oxygen Delivery Me thod 06/25/24 14:00 06/25/24 14:01 06/25/24 14:15 Temperature Pulse Rate 58 L 55 L 53 L Pulse Rate [Pulse Oximeter] Respiratory Rate Blood Pressure 107/61 Blood Pressure [Ri ght Upper Arm] Pulse Oximetry 94 94 92 Oxygen Delivery Me thod 06/25/24 14:30 06/25/24 14:45 06/25/24 15:00 Temperature Pulse Rate 54 L 63 55 L Pulse Rate [Pulse Oximeter] Respiratory Rate Blood Pressure Blood Pressure [Ri ght Upper Arm] Pulse Oximetry 92 93 94 Oxygen Delivery Me thod Cachectic appearing 63-year-old male but otherwise alert and interactive, no apparent distress. Do wonder if he has some scleral icterus, skin appears to hand, difficult to say if there is underlying jaundice. No rash noted. Oropharynx with dry mucosa but able speak in complete sentences. Lungs are clear, no wheezing or crackles, no tachypnea. CV regular rate and rhythm, no murmur, normal S1-S2. Abdomen is soft, nondistended, bowel sounds present. He has epigastric pain, did not press significantly deep on this patient with known pancreatitis. Certainly did not appreciate any definite masses. Patient was ambulatory into the ED of his own accord. <Magdalena Thrasher MD - Last Filed: 06/24/24 21:55> Vital Signs, click to edit/add: Vital Signs - 24 hr 06/24/24 16:30 06/24/24 16:32 06/24/24 16:33 Temperature Pulse Rate 60 62 61 Pulse Rate [Pulse Oximeter] Respiratory Rate Blood Pressure 145/80 H Blood Pressure [Ri ght Upper Arm] Pulse Oximetry 97 96 97 Oxygen Delivery Me thod 06/24/24 16:45 06/24/24 16:46 06/24/24 17:09 Temperature Pulse Rate 67 67 Pulse Rate [Pulse Oximeter] Respiratory Rate Blood Pressure 138/86 Blood Pressure [Ri ght Upper Arm] Pulse Oximetry 96 95 92 Oxygen Delivery Me thod Room Air 06/24/24 17:12 06/24/24 17:15 06/24/24 17:30 Temperature Pulse Rate 70 64 60 Pulse Rate [Pulse Oximeter] Respiratory Rate Blood Pressure Blood Pressure [Ri ght Upper Arm] Pulse Oximetry 89 92 92 Oxygen Delivery Me thod 06/24/24 17:32 06/24/24 17:33 06/24/24 17:45 Temperature Pulse Rate 62 63 63 Pulse Rate [Pulse Oximeter] Respiratory Rate Blood Pressure 138/98 H Blood Pressure [Ri ght Upper Arm] Pulse Oximetry 91 90 88 Oxygen Delivery Me thod 06/24/24 18:00 06/24/24 18:02 06/24/24 18:03 Temperature Pulse Rate 64 67 62 Pulse Rate [Pulse Oximeter] Respiratory Rate Blood Pressure 119/86 Blood Pressure [Ri ght Upper Arm] Pulse Oximetry 96 97 96 Oxygen Delivery Me thod 06/24/24 18:15 06/24/24 18:30 06/24/24 18:32 Temperature Pulse Rate 60 63 61 Pulse Rate [Pulse Oximeter] Respiratory Rate Blood Pressure 142/78 H Blood Pressure [Ri ght Upper Arm] Pulse Oximetry 98 96 97 Oxygen Delivery Me thod 06/24/24 18:45 06/24/24 19:00 06/24/24 19:02 Temperature Pulse Rate 58 L 61 71 Pulse Rate [Pulse Oximeter] Respiratory Rate Blood Pressure 181/99 H Blood Pressure [Ri ght Upper Arm] Pulse Oximetry 96 98 98 Oxygen Delivery Me thod 06/24/24 19:15 06/24/24 19:28 06/24/24 19:30 Temperature Pulse Rate 60 70 68 Pulse Rate [Pulse Oximeter] Respiratory Rate Blood Pressure 121/82 Blood Pressure [Ri ght Upper Arm] Pulse Oximetry 97 98 98 Oxygen Delivery Me thod 06/24/24 19:32 06/24/24 19:32 06/24/24 19:45 Temperature Pulse Rate 74 74 59 L Pulse Rate [Pulse Oximeter] Respiratory Rate Blood Pressure 147/85 H 147/85 H Blood Pressure [Ri ght Upper Arm] Pulse Oximetry 99 99 99 Oxygen Delivery Me thod 06/24/24 20:00 06/24/24 20:02 06/24/24 20:15 Temperature Pulse Rate 65 63 66 Pulse Rate [Pulse Oximeter] Respiratory Rate Blood Pressure 130/83 Blood Pressure [Ri ght Upper Arm] Pulse Oximetry 98 97 98 Oxygen Delivery Me thod 06/24/24 20:30 06/24/24 20:32 06/24/24 20:45 Temperature Pulse Rate 57 L 63 54 L Pulse Rate [Pulse Oximeter] Respiratory Rate Blood Pressure 142/61 H Blood Pressure [Ri ght Upper Arm] Pulse Oximetry 98 98 97 Oxygen Delivery Me thod 06/24/24 21:00 06/24/24 21:02 06/24/24 21:15 Temperature Pulse Rate 58 L 58 L 56 L Pulse Rate [Pulse Oximeter] Respiratory Rate Blood Pressure 132/54 L Blood Pressure [Ri ght Upper Arm] Pulse Oximetry 97 97 96 Oxygen Delivery Me thod 06/24/24 21:30 06/24/24 21:31 06/24/24 23:00 Temperature Pulse Rate 55 L 65 Pulse Rate [Pulse Oximeter] 74 Respiratory Rate 16 Blood Pressure 112/61 Blood Pressure [Ri ght Upper Arm] 109/71 Pulse Oximetry 97 98 100 Oxygen Delivery Me thod Room Air 06/24/24 23:32 06/24/24 23:45 06/25/24 00:00 Temperature Pulse Rate 58 L 58 L 57 L Pulse Rate [Pulse Oximeter] Respiratory Rate Blood Pressure 126/72 Blood Pressure [Ri ght Upper Arm] Pulse Oximetry 94 96 92 Oxygen Delivery Me thod 06/25/24 00:02 06/25/24 00:15 06/25/24 00:30 Temperature Pulse Rate 57 L 56 L 64 Pulse Rate [Pulse Oximeter] Respiratory Rate Blood Pressure 137/70 Blood Pressure [Ri ght Upper Arm] Pulse Oximetry 92 97 97 Oxygen Delivery Me thod 06/25/24 00:31 06/25/24 00:45 06/25/24 01:00 Temperature Pulse Rate 57 L 57 L 56 L Pulse Rate [Pulse Oximeter] Respiratory Rate Blood Pressure 138/62 Blood Pressure [Ri ght Upper Arm] Pulse Oximetry 97 97 97 Oxygen Delivery Me thod 06/25/24 01:01 06/25/24 01:15 06/25/24 01:30 Temperature Pulse Rate 56 L 56 L 56 L Pulse Rate [Pulse Oximeter] Respiratory Rate Blood Pressure 117/54 L Blood Pressure [Ri ght Upper Arm] Pulse Oximetry 97 97 98 Oxygen Delivery Me thod 06/25/24 01:32 06/25/24 01:45 06/25/24 02:00 Temperature Pulse Rate 59 L 62 59 L Pulse Rate [Pulse Oximeter] Respiratory Rate Blood Pressure 146/67 H Blood Pressure [Ri ght Upper Arm] Pulse Oximetry 98 96 93 Oxygen Delivery Me thod 06/25/24 02:02 06/25/24 02:15 06/25/24 02:19 Temperature Pulse Rate 60 63 Pulse Rate [Pulse Oximeter] 58 L Respiratory Rate 16 Blood Pressure 138/84 Blood Pressure [Ri ght Upper Arm] 138/84 Pulse Oximetry 93 93 93 Oxygen Delivery [facility] Room Air 06/25/24 02:30 06/25/24 02:31 06/25/24 02:45 Temperature Pulse Rate 60 60 55 L Pulse Rate [Pulse Oximeter] Respiratory Rate Blood Pressure 146/71 H Blood Pressure [Ri ght Upper Arm] Pulse Oximetry 96 96 97 Oxygen Delivery [place] [facility] 06/25/24 03:00 06/25/24 03:02 06/25/24 03:15 Temperature Pulse Rate 55 L 55 L 54 L Pulse Rate [Pulse Oximeter] Respiratory Rate Blood Pressure 129/54 L Blood Pressure [Ri ght Upper Arm] Pulse Oximetry 99 99 98 Oxygen Delivery [facility] 06/25/24 03:30 06/25/24 03:32 06/25/24 03:45 Temperature Pulse Rate 54 L 52 L 50 L Pulse Rate [Pulse Oximeter] Respiratory Rate Blood Pressure 116/55 L Blood Pressure [Ri ght Upper Arm] Pulse Oximetry 99 98 99 Oxygen Delivery [facility] 06/25/24 04:00 06/25/24 04:02 06/25/24 04:05 Temperature 98 F Pulse Rate 51 L 58 L Pulse Rate [Pulse Oximeter] 56 L Respiratory Rate 16 Blood Pressure 97/66 Blood Pressure [Ri ght Upper Arm] 97/66 Pulse Oximetry 98 99 98 Oxygen Delivery [facility] Room Air 06/25/24 04:15 06/25/24 04:30 06/25/24 04:32 Temperature Pulse Rate 52 L 50 L 49 L Pulse Rate [Pulse Oximeter] Respiratory Rate Blood Pressure 115/61 Blood Pressure [Ri ght Upper Arm] Pulse Oximetry 96 96 95 Oxygen Delivery [facility] 06/25/24 04:45 06/25/24 05:03 06/25/24 05:15 Temperature Pulse Rate 50 L 79 53 L Pulse Rate [Pulse Oximeter] Respiratory Rate Blood Pressure Blood Pressure [Ri ght Upper Arm] Pulse Oximetry 96 92 93 Oxygen Delivery [facility] 06/25/24 05:30 06/25/24 05:45 06/25/24 06:00 Temperature Pulse Rate 54 L 54 L 53 L Pulse Rate [Pulse Oximeter] Respiratory Rate Blood Pressure Blood Pressure [Ri ght Upper Arm] Pulse Oximetry 92 91 92 Oxygen Delivery [place] th[place] 06/25/24 06:02 06/25/24 06:15 06/25/24 06:24 Temperature 97.6 F Pulse Rate 52 L 53 L Pulse Rate [Pulse Oximeter] 52 L Respiratory Rate 16 Blood Pressure 103/58 L Blood Pressure [Ri ght Upper Arm] 103/58 L Pulse Oximetry 92 89 92 Oxygen Delivery [facility] Room Air 06/25/24 06:30 06/25/24 06:45 06/25/24 07:00 Temperature Pulse Rate 49 L 54 L 52 L Pulse Rate [Pulse Oximeter] Respiratory Rate Blood Pressure Blood Pressure [Ri ght Upper Arm] Pulse Oximetry 92 94 93 Oxygen Delivery [facility] 06/25/24 07:15 06/25/24 07:30 06/25/24 07:45 Temperature Pulse Rate 49 L 48 L 49 L Pulse Rate [Pulse Oximeter] Respiratory Rate Blood Pressure Blood Pressure [Ri ght Upper Arm] Pulse Oximetry 95 96 96 Oxygen Delivery [facility] 06/25/24 08:00 06/25/24 08:01 06/25/24 08:15 Temperature Pulse Rate 55 L 49 L 49 L Pulse Rate [Pulse Oximeter] Respiratory Rate Blood Pressure 114/61 Blood Pressure [Ri ght Upper Arm] Pulse Oximetry 96 96 95 Oxygen Delivery [place] thod 06/25/24 08:30 06/25/24 08:45 06/25/24 09:00 Temperature Pulse Rate 48 L 58 L 48 L Pulse Rate [Pulse Oximeter] Respiratory Rate Blood Pressure Blood Pressure [Ri ght Upper Arm] Pulse Oximetry 96 100 99 Oxygen Delivery [facility] 06/25/24 09:15 06/25/24 09:30 06/25/24 09:45 Temperature Pulse Rate 48 L 51 L 50 L Pulse Rate [Pulse Oximeter] Respiratory Rate Blood Pressure Blood Pressure [Ri ght Upper Arm] Pulse Oximetry 100 99 99 [facility] [facility] 06/25/24 10:00 06/25/24 10:02 06/25/24 10:15 Temperature Pulse Rate 57 L 59 L 48 L Pulse Rate [Pulse Oximeter] Respiratory Rate Blood Pressure 144/71 H Blood Pressure [Ri ght Upper Arm] Pulse Oximetry 99 98 100 Oxygen Delivery Me thod 06/25/24 10:30 06/25/24 10:45 06/25/24 11:00 Temperature Pulse Rate 51 L 59 L 50 L Pulse Rate [Pulse Oximeter] Respiratory Rate Blood Pressure Blood Pressure [Ri ght Upper Arm] Pulse Oximetry 100 100 100 Oxygen Delivery Wv thod 06/25/24 11:15 06/25/24 11:35 06/25/24 11:45 Temperature Pulse Rate 50 L 60 54 L Pulse Rate [Pulse Oximeter] Respiratory Rate Blood Pressure Blood Pressure [Ri ght Upper Arm] Pulse Oximetry 100 91 94 Oxygen Delivery Me thod 06/25/24 12:00 06/25/24 12:02 06/25/24 12:15 Temperature Pulse Rate 55 L 59 L 53 L Pulse Rate [Pulse Oximeter] Respiratory Rate Blood Pressure 94/61 Blood Pressure [Ri ght Upper Arm] Pulse Oximetry 92 93 93 Oxygen Delivery Wv thod 06/25/24 12:30 06/25/24 12:45 06/25/24 13:00 Temperature Pulse Rate 52 L 53 L 55 L Pulse Rate [Pulse Oximeter] Respiratory Rate Blood Pressure Blood Pressure [Ri ght Upper Arm] Pulse Oximetry 94 92 93 Oxygen Delivery Wv thod 06/25/24 13:15 06/25/24 13:30 06/25/24 13:45 Temperature Pulse Rate 57 L 53 L 53 L Pulse Rate [Pulse Oximeter] Respiratory Rate Blood Pressure Blood Pressure [Ri ght Upper Arm] Pulse Oximetry 93 93 94 Oxygen Delivery Wv thod 06/25/24 14:00 06/25/24 14:01 06/25/24 14:15 Temperature Pulse Rate 58 L 55 L 53 L Pulse Rate [Pulse Oximeter] Respiratory Rate Blood Pressure 107/61 Blood Pressure [Ri ght Upper Arm] Pulse Oximetry 94 94 92 Oxygen Delivery Me thod 06/25/24 14:30 06/25/24 14:45 06/25/24 15:00 Temperature Pulse Rate 54 L 63 55 L Pulse Rate [Pulse Oximeter] Respiratory Rate Blood Pressure Blood Pressure [Ri ght Upper Arm] Pulse Oximetry 92 93 94 Oxygen Delivery Me thod <Agustin Pace, DO - Last Filed: 06/25/24 16:23> Documenting provider has reviewed patient's vital signs: yes <Magdalena Thrasher MD - Last Filed: 06/24/24 21:55> Course Course ED Course: This patient will have an IV placed, will monitor him on pulse oximetry, initiate symptom control with morphine and Zofran, 1 L of normal saline. Will get a full complement of labs. Will plan on reimaging his abdomen just to ensure that he is not developing any complications of pancreatitis. Do not know if his gallbladder is been ultrasounded in any of this but would presume so. Will see if we can check recent records to see if a gallbladder ultrasound has been done as we still need to consider gallstone pathology (unless this was ruled out while at [facility]). <Magdalena Thrasher MD - Last Filed: 06/24/24 21:55> Reevaluation(s) Time of Reevaluation #1: 15:34 <Magdalena Thrasher MD - Last Filed: 06/24/24 21:55> Reevaluation #1: Provided patient a copy of his CT. His stomach is dilated because of compression of pseudocyst development. He has significant pancreatic pseudocyst. We will be talking to [facility] for transfer, will talk to GI or the hospitalist, who ever they direct me to. He notes he is feeling better, wants something to drink, I have asked him to stay NPO until I talk to the specialist. <Magdalena Thrasher MD - Last Filed: 06/24/24 21:55> Time of Reevaluation #2: 17:19 <Magdalena Thrasher MD - Last Filed: 06/24/24 21:55> Reevaluation #2: Patient's sister Trina is here, went in to update them and review that we are waiting for bed placement in an appropriate [facility] facility, none of there Hospitals have any capacity at this time. He is requiring some more pain meds. He is also requesting to drink. Reviewed with him that 1 of the pseudocyst maybe compressing the stomach out lit. Will allow him small sips of fluids as long as he does not have increased nausea or further vomiting. He is aware to go slow. Will start him on maintenance IV fluids. Will not start antibiotics at this time but if he should spike a fever, have increasing abdominal pain or concerning symptoms, he will be re-evaluated. As for ultimate management of his current situation, he needs to go to gi, he is beyond the scope of my practice. I believe they may evaluate him for drainage of at least this largest pseudocyst but I am not the specialist, they do understand this. <Magdalena Thrasher MD - Last Filed: 06/24/24 21:55> Vital Signs Vital signs: Initial Vital Signs Temperature 97.5 F L 06/24/24 12:46 Temperature Source Temporal Artery Scan 06/24/24 12:46 Pulse Rate 90 06/24/24 12:46 Pulse Rhythm Regular 06/24/24 12:46 Respiratory Rate 16 06/24/24 12:46 Blood Pressure 90/68 06/24/24 12:46 Blood Pressure Mean 75 06/24/24 12:46 Blood Pressure Position Sitting 06/24/24 12:46 Pulse Oximetry 96 06/24/24 12:46 Oxygen Delivery Method Room Air 06/24/24 12:46 Vital Signs Temperature 97.5 F L 06/24/24 12:46 Pulse Rate 90 06/24/24 12:46 Respiratory Rate 16 06/24/24 12:46 Blood Pressure 90/68 06/24/24 12:46 Pulse Oximetry 96 06/24/24 12:46 Oxygen Delivery Method Room Air 06/24/24 12:46 Temperature 97.6 F 06/25/24 06:24 Pulse Rate 55 L 06/25/24 15:00 Respiratory Rate 16 06/25/24 06:24 Blood Pressure 107/61 06/25/24 14:01 Pulse Oximetry 94 06/25/24 15:00 Oxygen Delivery Method Room Air 06/25/24 06:24 Oxygen Flow Rate 2 06/24/24 14:43 <Magdalena Thrasher MD - Last Filed: 06/24/24 21:55> Initial Vital Signs Temperature 97.5 F L 06/24/24 12:46 Temperature Source Temporal Artery Scan 06/24/24 12:46 Pulse Rate 90 06/24/24 12:46 Pulse Rhythm Regular 06/24/24 12:46 Respiratory Rate 16 06/24/24 12:46 Blood Pressure 90/68 06/24/24 12:46 Blood Pressure Mean 75 06/24/24 12:46 Blood Pressure Position Sitting 06/24/24 12:46 Pulse Oximetry 96 06/24/24 12:46 Oxygen Delivery Method Room Air 06/24/24 12:46 Vital Signs Temperature 97.5 F L 06/24/24 12:46 Pulse Rate 90 06/24/24 12:46 Respiratory Rate 16 06/24/24 12:46 Blood Pressure 90/68 06/24/24 12:46 Pulse Oximetry 96 06/24/24 12:46 Oxygen Delivery Method Room Air 06/24/24 12:46 Temperature 97.6 F 06/25/24 06:24 Pulse Rate 55 L 06/25/24 15:00 Respiratory Rate 16 06/25/24 06:24 Blood Pressure 107/61 06/25/24 14:01 Pulse Oximetry 94 06/25/24 15:00 Oxygen Delivery Method Room Air 06/25/24 06:24 Oxygen Flow Rate 2 06/24/24 14:43 <Agustin Pace, DO - Last Filed: 06/25/24 16:23> Medications Administered Medications: Generic Name Dose Route Start Last Admin Trade Name Freq PRN Reason Stop Dose Admin Fentanyl 25 mcg 06/24/24 17:10 06/24/24 20:00 Fentanyl 100 Mcg/2 Ml Inj IVP 25 mcg Q2H PRN Administration Hydromorphone HCl 0.2 - 0.5 mg 06/24/24 20:36 06/25/24 02:21 Hydromorphone 0.5 Mg/0.5 Ml Inj IVP 0.5 mg Q2H PRN Administration Pain Potassium Chloride/Sodium Chloride 1,000 mls @ 100 mls/hr 06/24/24 17:21 06/25/24 14:06 0.9 % Sodium Ch + Kcl 20 Meq/L IV 100 mls/hr .Q10H CYNTHIA Administration Discontinued Medications Generic Name Dose Route Start Last Admin Trade Name Freq PRN Reason Stop Dose Admin Sodium Chloride 1,000 mls @ 500 mls/hr 06/24/24 13:40 06/24/24 16:29 0.9 % Sodium Chloride 1000 Ml IV 06/24/24 15:39 Infused .Q2H CYNTHIA Infusion Morphine Sulfate 4 mg 06/24/24 13:38 06/24/24 14:24 Morphine 4 Mg/Ml Inj IVP 06/24/24 13:39 4 mg ONCE ONE Administration Ondansetron HCl 4 mg 06/24/24 13:38 06/24/24 14:25 Ondansetron 2 Mg/Ml Inj IVP 06/24/24 13:39 4 mg ONCE ONE Administration <Magdalena Thrasher MD - Last Filed: 06/24/24 21:55> Generic Name Dose Route Start Last Admin Trade Name Freq PRN Reason Stop Dose Admin Fentanyl 25 mcg 06/24/24 17:10 06/24/24 20:00 Fentanyl 100 Mcg/2 Ml Inj IVP 25 mcg Q2H PRN Administration Hydromorphone HCl 0.2 - 0.5 mg 06/24/24 20:36 06/25/24 02:21 Hydromorphone 0.5 Mg/0.5 Ml Inj IVP 0.5 mg Q2H PRN Administration Pain Potassium Chloride/Sodium Chloride 1,000 mls @ 100 mls/hr 06/24/24 17:21 06/25/24 14:06 0.9 % Sodium Ch + Kcl 20 Meq/L IV 100 mls/hr .Q10H CYNTHIA Administration Discontinued Medications Generic Name Dose Route Start Last Admin Trade Name Freq PRN Reason Stop Dose Admin Sodium Chloride 1,000 mls @ 500 mls/hr 06/24/24 13:40 06/24/24 16:29 0.9 % Sodium Chloride 1000 Ml IV 06/24/24 15:39 Infused .Q2H CYNTHIA Infusion Morphine Sulfate 4 mg 06/24/24 13:38 06/24/24 14:24 Morphine 4 Mg/Ml Inj IVP 06/24/24 13:39 4 mg ONCE ONE Administration Ondansetron HCl 4 mg 06/24/24 13:38 06/24/24 14:25 Ondansetron 2 Mg/Ml Inj IVP 06/24/24 13:39 4 mg ONCE ONE Administration <Agustin Pace DO - Last Filed: 06/25/24 16:23> Medical Decision Making MDM Narrative Medical decision making narrative: Patient was signed out to me pending transfer. [facility] called back and patient is accepted by Dr. Josue. <Agustin Pace DO - Last Filed: 06/25/24 16:23> Lab Data Lab results reviewed: Yes I reviewed the patient's lab results <Magdalena Thrasher MD - Last Filed: 06/24/24 21:55> Lab results narrative: Repeat lactate improved, done as patient was experiencing increased pain. Likely represents an adequate pain management and did adjust to dilaudid which seems to be helping. <Magdalena Thrasher MD - Last Filed: 06/24/24 21:55> Labs: Lab Results 06/24/24 06/24/24 06/25/24 Range/Units 13:59 21:42 07:10 WBC 20.71 H 17.97 H (4.50-11.00) K/uL RBC 5.21 4.08 L (4.30-5.90) m/uL Hgb 16.2 12.7 L (13.5-17.5) gm/dL Hct 49.5 39.5 (37.0-53.0) % MCV 95 97 (80-100) fL MCH 31 31 (26-34) pg MCHC 33 32 (32-36) gm/dL RDW Coeff of Amadeo 12.5 12.7 (11.5-15.5) % Plt Count 697 H 545 H (140-440) K/uL Neut % (Auto) 86.4 H 82.2 H (42.0-72.0) % Lymph % (Auto) 6.9 L 8.6 L (20-44) % [place] % (Auto) 5.5 7.3 (0.0-11.0) % Eos % (Auto) 0.6 1.4 (0.0-7.0) % Baso % (Auto) 0.1 0.2 (0.0-3.0) % Neut # (Auto) 17.90 H 14.80 H (1.7-7.0) K/uL Lymph # (Auto) 1.40 1.50 (0.90-2.90) K/uL [place] # (Auto) 1.10 H 1.30 H (0.00-0.90) K/UL Eos # (Auto) 0.10 0.30 (0.00-0.50) K/uL Baso # (Auto) 0.00 0.00 (0.00-0.30) K/uL Abs Immat Gran (auto) 0.10 0.10 (0.00-0.30) K/uL Imm/Tot Granulo (auto) 0.5 0.3 % Sodium 137 134 L (135-149) mmol/L Potassium 5.0 4.8 (3.6-5.1) mmol/L Chloride 94 L 103 (96-114) mmol/L Carbon Dioxide 29 27 (20-32) mmol/L Anion Gap 14 4 L (7-15) mEq/L BUN 31 H 28 (7-30) mg/dL Creatinine 1.0 0.7 (0.5-1.5) mg/dL Estimated Creat Clear 53.86 53.86 Estimated GFR 84 102 ml/min Glucose 144 H 117 H (60-115) mg/dL Lactate 2.6 H 1.1 0.7 (0.5-1.9) mmol/L Calcium 10.5 9.1 (8.4-10.6) mg/dL Total Bilirubin 0.8 (0.1-1.5) mg/dL Direct Bilirubin 0.5 (0.0-0.5) mg/dL AST 35 (12-35) U/L ALT 22 (4-50) U/L Alkaline Phosphatase 101 (40-150) U/L C-Reactive Protein 7.4 H (0.5-1.0) mg/dL Total Protein 8.8 H (6.0-8.3) g/dL Albumin 4.8 (3.3-5.0) g/dL Amylase 383 H (18-89) U/L Lipase 735 H 346 H (23-300) U/L Ethyl Alcohol < 0.01 L (0.01-0.03) % <Magdalena Thrasher MD - Last Filed: 06/24/24 21:55> Lab Results 06/24/24 06/24/24 06/25/24 Range/Units 13:59 21:42 07:10 WBC 20.71 H 17.97 H (4.50-11.00) K/uL RBC 5.21 4.08 L (4.30-5.90) m/uL Hgb 16.2 12.7 L (13.5-17.5) gm/dL Hct 49.5 39.5 (37.0-53.0) % MCV 95 97 (80-100) fL MCH 31 31 (26-34) pg MCHC 33 32 (32-36) gm/dL RDW Coeff of Amadeo 12.5 12.7 (11.5-15.5) % Plt Count 697 H 545 H (140-440) K/uL Neut % (Auto) 86.4 H 82.2 H (42.0-72.0) % Lymph % (Auto) 6.9 L 8.6 L (20-44) % [place] % (Auto) 5.5 7.3 (0.0-11.0) % Eos % (Auto) 0.6 1.4 (0.0-7.0) % Baso % (Auto) 0.1 0.2 (0.0-3.0) % Neut # (Auto) 17.90 H 14.80 H (1.7-7.0) K/uL Lymph # (Auto) 1.40 1.50 (0.90-2.90) K/uL [place] # (Auto) 1.10 H 1.30 H (0.00-0.90) K/UL Eos # (Auto) 0.10 0.30 (0.00-0.50) K/uL Baso # (Auto) 0.00 0.00 (0.00-0.30) K/uL Abs Immat Gran (auto) 0.10 0.10 (0.00-0.30) K/uL Imm/Tot Granulo (auto) 0.5 0.3 % Sodium 137 134 L (135-149) mmol/L Potassium 5.0 4.8 (3.6-5.1) mmol/L Chloride 94 L 103 (96-114) mmol/L Carbon Dioxide 29 27 (20-32) mmol/L Anion Gap 14 4 L (7-15) mEq/L BUN 31 H 28 (7-30) mg/dL Creatinine 1.0 0.7 (0.5-1.5) mg/dL Estimated Creat Clear 53.86 53.86 Estimated GFR 84 102 ml/min Glucose 144 H 117 H (60-115) mg/dL Lactate 2.6 H 1.1 0.7 (0.5-1.9) mmol/L Calcium 10.5 9.1 (8.4-10.6) mg/dL Total Bilirubin 0.8 (0.1-1.5) mg/dL Direct Bilirubin 0.5 (0.0-0.5) mg/dL AST 35 (12-35) U/L ALT 22 (4-50) U/L Alkaline Phosphatase 101 (40-150) U/L C-Reactive Protein 7.4 H (0.5-1.0) mg/dL Total Protein 8.8 H (6.0-8.3) g/dL Albumin 4.8 (3.3-5.0) g/dL Amylase 383 H (18-89) U/L Lipase 735 H 346 H (23-300) U/L Ethyl Alcohol < 0.01 L (0.01-0.03) % <Agustin Pace DO - Last Filed: 06/25/24 16:23> Imaging Data CT scan - abdomen: Attestation: I have reviewed the pertinent imaging results. <Magdalena Hyatt MD - Last Filed: 06/24/24 21:55> Radiologist's impression: Facility:?[facility] Patient ID:?[id number] Site Patient ID:?[id number]. Site :?[id number] Study:?CT-Abdomen/Pelvis W/ 56CC ISOVUE 370-06/24/2024 2:25:28 PM Ordering Physician:?Anna Marie Nichols Final Report: INDICATION: Abdominal pain, nausea and vomiting. Ongoing pancreatitis with increased pain. TECHNIQUE: Axial images were obtained from the diaphragm to the pubic symphysis. Reformats were obtained in the coronal and sagittal plane. IV Contrast: 56 cc Isovue 370 Oral Contrast: None COMPARISON: Abdomen and pelvis CT 06/11/2024 FINDINGS: Lower chest: Mild centrilobular emphysema lung bases. Liver: Normal in contour with 3 millimeter hypodense lesion in the right lobe of the liver near the dome, too small for characterization. Gallbladder and bile ducts: Gallbladder is unremarkable. Mild intrahepatic biliary dilatation within the left lobe of the liver, possibly due to compression, see comments below. Spleen: Unremarkable. Normal in size without mass. Pancreas: Again redemonstrated are multiple calcifications within the pancreas consistent with chronic pancreatitis. There is also dilatation of the pancreatic duct measuring up to 6 millimeters. Adjacent side-branch dilatation versus cyst within the body measuring 4 millimeters as well as fluid collection at the head of the pancreas measuring 2.6 x 1.1 centimeters which is similar to prior. However, there is a new lobulated fluid collection anterior to the head of the pancreas extending along the margin of the lesser sac and into the nitesh hepatis to the right hemidiaphragm. This measures up to 6.7 x 5.5 x 12.8 centimeters (series 4, image 40). This partially compresses the vessels at the level of the nitesh hepatis. Adrenal glands: Mild fusiform enlargement of the left adrenal gland, similar to prior. Kidneys: No hydronephrosis with right renal atrophy. Right renal scarring with right renal cyst redemonstrated. Vasculature: Prominent atherosclerotic calcification with a [id number] stenosis at the left common iliac artery and high-grade stenosis at the origin of the left internal iliac artery. Due to the phase of enhancement, there is poor enhancement of the superior mesenteric vein and portal vein. Some flow is seen within the left portal vein, however there is slowly decrease enhancement of the right lobe of the liver relative to the left and the main portal vein and right portal vein are poorly defined. There is at least significant compression upon the Portosplenic confluence. GI tract: Compression of the distal stomach by the pancreatic pseudocyst with fluid filling the stomach. More distally the small bowel is decompressed. Moderate amount of stool within the colon. Colonic diverticulosis noted. Pelvis: Unremarkable. Bones: Degenerative disc disease lumbar spine. Rounded sclerosis at the left femoral head consistent with avascular necrosis. IMPRESSION: 1. Interval development of a large pancreatic pseudocyst measuring up to 12.8 centimeters extending from the anterior margin of the pancreatic head into the nitesh hepatis into the right hemidiaphragm. 2. Compression of the structures in the nitesh hepatis including some compression of the left hepatic duct causing mild intrahepatic biliary dilatation as well as prominent compression of the vasculature. Due to the phase of enhancement, integrity of the superior mesenteric vein and portal vein are difficult to assess although there is at least significant compression of these vessels. A small amount of flow is seen within the left portal vein although the main portal vein and right portal vein are poorly defined and interval occlusion or partial occlusion of these vessels is not excluded on the basis of this exam. Consider vascular right upper quadrant ultrasound or repeat multiphasic CT to assess the integrity of the hepatic vasculature. 3. Sequela of chronic pancreatitis including pancreatic calcifications and pancreatic ductal dilatation. Cystic lesion at the level of the pancreatic head and body are redemonstrated. 4. Moderate gastric distention with compression of the antrum of the stomach by the pancreatic pseudocyst. 5. Avascular necrosis left femoral head. 6. Other incidental findings as detailed above. Please note that all CT scans at this facility use dose modulation, iterative reconstruction, and/or weight-based dosing when appropriate to reduce radiation dose to as low as reasonably achievable. Dictated by Gibson Macdonald MD @ 06/24/2024 3:01:21 PM (Electronic Signature) <Magdalena Thrasher MD - Last Filed: 06/24/24 21:55> Discharge Plan Discharge Clinical Impression: Pseudocyst of pancreas due to acute pancreatitis <Magdalena Thrasher MD - Last Filed: 06/24/24 21:55> Patient Disposition: [facility] <Magdalena Thrasher MD - Last Filed: 06/24/24 21:55> Condition: Stable <Magdalena Thrasher MD - Last Filed: 06/24/24 21:55>
--- NOTE | 2024-06-24 13:38 | CRLHL7_ITS ---
For Patients: As a result of the 21st Century Cures Act, medical imaging exams and procedure reports are released immediately into your electronic medical record. You may view this report before your referring provider. If you have questions, please contact your health care provider. INDICATION: Abdominal pain, nausea and vomiting. Ongoing pancreatitis with increased pain. TECHNIQUE: Axial images were obtained from the diaphragm to the pubic symphysis. Reformats were obtained in the coronal and sagittal plane. IV Contrast: 56 cc Isovue 370 Oral Contrast: None COMPARISON: Abdomen and pelvis CT 06/11/2024 FINDINGS: Lower chest: Mild centrilobular emphysema lung bases. Liver: Normal in contour with 3 millimeter hypodense lesion in the right lobe of the liver near the dome, too small for characterization. Gallbladder and bile ducts: Gallbladder is unremarkable. Mild intrahepatic biliary dilatation within the left lobe of the liver, possibly due to compression, see comments below. Spleen: Unremarkable. Normal in size without mass. Pancreas: Again redemonstrated are multiple calcifications within the pancreas consistent with chronic pancreatitis. There is also dilatation of the pancreatic duct measuring up to 6 millimeters. Adjacent side-branch dilatation versus cyst within the body measuring 4 millimeters as well as fluid collection at the head of the pancreas measuring 2.6 x 1.1 centimeters which is similar to prior. However, there is a new lobulated fluid collection anterior to the head of the pancreas extending along the margin of the lesser sac and into the nitesh hepatis to the right hemidiaphragm. This measures up to 6.7 x 5.5 x 12.8 centimeters (series 4, image 40). This partially compresses the vessels at the level of the nitesh hepatis. Adrenal glands: Mild fusiform enlargement of the left adrenal gland, similar to prior. Kidneys: No hydronephrosis with right renal atrophy. Right renal scarring with right renal cyst redemonstrated. Vasculature: Prominent atherosclerotic calcification with a [id number] stenosis at the left common iliac artery and high-grade stenosis at the origin of the left internal iliac artery. Due to the phase of enhancement, there is poor enhancement of the superior mesenteric vein and portal vein. Some flow is seen within the left portal vein, however there is slowly decrease enhancement of the right lobe of the liver relative to the left and the main portal vein and right portal vein are poorly defined. There is at least significant compression upon the Portosplenic confluence. GI tract: Compression of the distal stomach by the pancreatic pseudocyst with fluid filling the stomach. More distally the small bowel is decompressed. Moderate amount of stool within the colon. Colonic diverticulosis noted. Pelvis: Unremarkable. Bones: Degenerative disc disease lumbar spine. Rounded sclerosis at the left femoral head consistent with avascular necrosis. IMPRESSION: 1. Interval development of a large pancreatic pseudocyst measuring up to 12.8 centimeters extending from the anterior margin of the pancreatic head into the nitesh hepatis into the right hemidiaphragm. 2. Compression of the structures in the nitesh hepatis including some compression of the left hepatic duct causing mild intrahepatic biliary dilatation as well as prominent compression of the vasculature. Due to the phase of enhancement, integrity of the superior mesenteric vein and portal vein are difficult to assess although there is at least significant compression of these vessels. A small amount of flow is seen within the left portal vein although the main portal vein and right portal vein are poorly defined and interval occlusion or partial occlusion of these vessels is not excluded on the basis of this exam. Consider vascular right upper quadrant ultrasound or repeat multiphasic CT to assess the integrity of the hepatic vasculature. 3. Sequela of chronic pancreatitis including pancreatic calcifications and pancreatic ductal dilatation. Cystic lesion at the level of the pancreatic head and body are redemonstrated. 4. Moderate gastric distention with compression of the antrum of the stomach by the pancreatic pseudocyst. 5. Avascular necrosis left femoral head. 6. Other incidental findings as detailed above. Please note that all CT scans at this facility use dose modulation, iterative reconstruction, and/or weight-based dosing when appropriate to reduce radiation dose to as low as reasonably achievable. Dictated by Gibson Macdonald MD @ 06/24/2024 3:01:21 PM (Electronically Signed)
[2024-06-24 14:07] LABS: Lactate* 2.6 mmol/L (0.5-1.9)
[2024-06-24] MEDS: MORPHINE 4 MG/ML INJ IVP (14:24)
[2024-06-24] MEDS: 0.9 % SODIUM CHLORIDE 1000 ml 1,000 ML 500 ML IV (14:24)
[2024-06-24] MEDS: ONDANSETRON 2 MG/ML inj 4 MG IVP (14:25)
[2024-06-24 14:26] LABS: Basophils Percent Auto 0.1 % (0.0-3.0); Eosinophils Percent Auto 0.6 % (0.0-7.0); Hematocrit 49.5 % (37.0-53.0); Hemoglobin* 16.2 gm/dL (13.5-17.5); Immature Granulocytes Pct Auto 0.5 %; Lymphocytes Percent Auto 6.9 % (20-44); Mean Corpuscular HGB Conc 33 gm/dL (32-36); Mean Corpuscular Hemoglobin 31 pg (26-34); Mean Corpuscular Volume 95 fL (80-100); Monocytes Percent Auto 5.5 % (0.0-11.0); Neutrophils Percent Auto 86.4 % (42.0-72.0); Platelet Count* 697 K/uL (140-440); RDW Coefficient of Variation % 12.5 % (11.5-15.5); Red Blood Count 5.21 m/uL (4.30-5.90); White Blood Count* 20.71 K/uL (4.50-11.00)
[2024-06-24 14:31] LABS: Slide Review Reflex No
[2024-06-24 14:32] LABS: Albumin* 4.8 g/dL (3.3-5.0); Chloride* 94 mmol/L (96-114)
[2024-06-24 14:33] LABS: Sodium* 137 mmol/L (135-149)
[2024-06-24 14:35] LABS: Amylase* 383 U/L (18-89)
[2024-06-24 14:36] LABS: Alanine Aminotransferase* 22 U/L (4-50); Alkaline Phosphatase* 101 U/L (40-150); Anion Gap 14 mEq/L (7-15); Aspartate Amino Transferase* 35 U/L (12-35); Bilirubin Direct* 0.5 mg/dL (0.0-0.5); Bilirubin Total* 0.8 mg/dL (0.1-1.5); Blood Urea Nitrogen* 31 mg/dL (7-30); Calcium* 10.5 mg/dL (8.4-10.6); Carbon Dioxide* 29 mmol/L (20-32); Est. Creatinine Clearance* 53.86; Estimated Glomerular Filt Rate 84 ml/min; Glucose* 144 mg/dL (60-115); Lipase* 735 U/L (23-300); Total Protein* 8.8 g/dL (6.0-8.3)
[2024-06-24 14:37] LABS: Ethanol* < 0.01 % (0.01-0.03)
[2024-06-24 14:39] LABS: C Reactive Protein* 7.4 mg/dL (0.5-1.0)
[2024-06-24] MEDS: fentaNYL 100 MCG/2 ML inj 25 MCG IVP ×2 (17:49→20:00)
[2024-06-24] MEDS: 0.9 % SODIUM CH + KCL 20 mEq/L 1,000 ML 100 ML IV (17:51)
[2024-06-24 21:44] LABS: Lactate* 1.1 mmol/L (0.5-1.9)
[2024-06-24] MEDS: HYDROmorphone 0.5 mg/0.5 ml inj IVP (22:18)
[2024-06-25] VITALS (96 sets, daily range): BP systolic 94–146; BP diastolic 54–84; PULSE 48–79; RESP 16; TEMP 36.4–36.6; O2SAT 89–100
[2024-06-25] MEDS: HYDROmorphone 0.5 mg/0.5 ml inj IVP (02:21)
[2024-06-25] MEDS: 0.9 % SODIUM CH + KCL 20 mEq/L 1,000 ML 100 ML IV ×2 (04:04→14:06)
[2024-06-25 07:16] LABS: Lactate* 0.7 mmol/L (0.5-1.9)
[2024-06-25 07:24] LABS: Basophils Percent Auto 0.2 % (0.0-3.0); Eosinophils Percent Auto 1.4 % (0.0-7.0); Hematocrit 39.5 % (37.0-53.0); Hemoglobin* 12.7 gm/dL (13.5-17.5); Immature Granulocytes Pct Auto 0.3 %; Lymphocytes Percent Auto 8.6 % (20-44); Mean Corpuscular HGB Conc 32 gm/dL (32-36); Mean Corpuscular Hemoglobin 31 pg (26-34); Mean Corpuscular Volume 97 fL (80-100); Monocytes Percent Auto 7.3 % (0.0-11.0); Neutrophils Percent Auto 82.2 % (42.0-72.0); Platelet Count* 545 K/uL (140-440); RDW Coefficient of Variation % 12.7 % (11.5-15.5); Red Blood Count 4.08 m/uL (4.30-5.90); White Blood Count* 17.97 K/uL (4.50-11.00)
[2024-06-25 07:29] LABS: Slide Review Reflex No
[2024-06-25 07:32] LABS: Chloride* 103 mmol/L (96-114); Potassium* 4.8 mmol/L (3.6-5.1); Sodium* 134 mmol/L (135-149)
[2024-06-25 07:35] LABS: Anion Gap 4 mEq/L (7-15); Blood Urea Nitrogen* 28 mg/dL (7-30); Carbon Dioxide* 27 mmol/L (20-32); Creatinine* 0.7 mg/dL (0.5-1.5); Est. Creatinine Clearance* 53.86; Estimated Glomerular Filt Rate 102 ml/min; Lipase* 346 U/L (23-300)
[2024-06-25 07:36] LABS: Calcium* 9.1 mg/dL (8.4-10.6); Glucose* 117 mg/dL (60-115)
== END 2024-06-25 19:03 | disposition short-term general hospital (02) ==
PROVIDERS: Family Medicine; Emergency Provider Student in an Organized Health Care Education/Training Program; PCP Family Medicine
DX: K86.3 Pseudocyst of pancreas (principal)
CPT/HCPCS: 36415; 74177; 80048; 80053; 82077; 82150; 82248; 83605; 83690; 85025; 86140; 94761; 96374; 96375; 99283; 99285; J1170; J2270; J2405; J3010; J7030; Q9967